=== PATIENT | male | born 1975 | race African-American/Black ===

== ENCOUNTER 2018-05-25 02:10 | Inpatient (IN) | payer BC, OTHER ==
--- NOTE | 2018-05-25 02:11 | PDOC ---
History of Present Illness - General Chief Complaint: Lethargy Stated Complaint: DEHYDRATION Time Seen by Provider: 05/25/18 02:11 History Source: Patient Exam Limitations: No Limitations - History of Present Illness Initial Comments: 05/25/18 03:44 Pt presents to the ED complaining of three days of severe fatigue, decreased appetite and dehydration. He has been drinking large amounts of fluid, but has not been eating. Complains of mild sore throat, but denies fever, body aches, cough, or other symptoms. No nausea or vomiting. No prior history of diabetes. Past History - Past Medical History Allergies/Adverse Reactions: Allergies Allergy/AdvReac Type Severity Reaction Status Date / Time No Known Allergies Allergy Verified 10/13/12 11:25 Home Medications: Ambulatory Orders Zantac PRN 10/13/12 - Suicide/Smoking/Psychosocial Hx Smoking Status: No Smoking History: Unknown if ever smoked Number of Cigarettes Smoked Daily: 0 Drug/Substance Use Hx: No Substance Use Type: None Review of Systems - Review of Systems Able to Perform ROS?: Yes Is the patient limited Croatian proficient: No Constitutional: No: Chills, Diaphoresis, Fever, Loss of Appetite, Malaise, Night Sweats, Weakness, Weight Stable, Unintentional Wgt. Loss, Unexplained wgt Loss, Other HEENTM: No: Eye Pain, Blurred Vision, Tearing, Recent change in vision, Double Vision, Cataracts, Ear Pain, Ocular Prothesis, Ear Discharge, Nose Pain, Nose Congestion, Tinnitus, Nose Bleeding, Hearing Loss, Throat Pain, Throat Swelling , Mouth Pain, Dental Problems, Difficulty Swallowing, Mouth Swelling, Other Cardiac (ROS): No: Symptoms Reported, See HPI, Chest Pain, Edema, Irregular Heart Rate, Lightheadedness, Palpitations, Syncope, Chest Tightness, Other ABD/GI: Yes: Poor Appetite. No: Abdominal Distended, Abd. Pain w/ defecation, Blood Streaked Bowels, Constipated, Diarrhea, Difficulty Swallowing, Nausea, Poor Fluid Intake, Rectal Bleeding, Vomiting, Indigestion, Abdominal cramping, Tarry Stools, Other : No: Symptoms Reported, See HPI, Burning, Dysuria, Discharge, Frequency, Flank Pain, Hematuria, Incontinence, Pain, Urgency, Testicular Mass, Testicular Swelling, Lesions, Testicular Pain, Other Musculoskeletal: No: Symptoms Reported, See HPI, Back Pain, Gout, Joint Pain, Joint Swelling, Muscle Pain, Muscle Weakness, Neck Pain, Joint Stiffness, Other Integumentary: No: Symptoms Reported, See HPI, Bruising, Change in Color, Change in Hair/Nails, Dryness, Erythema, Flushing, Lesions, Lumps, Pallor, Pruritus, Rash, Sweating, Other Neurological: No: Symptoms reported, See HPI, Headache, Numbness, Paresthesia, Pre-Existing Deficit, Seizure, Tingling, Tremors, Weakness, Unsteady Gait, Ataxia, Dizziness, Other Psychiatric: Yes: Change in Appetite Endocrine: Yes: Increased Thirst, Increased Urine All Other Systems: Reviewed and Negative ED Treatment Course - LABORATORY CBC & Chemistry Diagram: 05/25/18 02:39 05/25/18 04:23 Medical Decision Making - Medical Decision Making 05/25/18 03:51 Pt presents to the ED complaining of a three day history of malaise, increased thirst and decreased appetite. Differential included new onset DM, electrolyte imbalance, less likely thyroid disorder or infection. Labs show glucose >1000. Rest of chemistry is still pending. Will treat with insulin drip if patient has DKA. Will continue agressive hydration and reassess sugar. 05/25/18 03:53 05/25/18 06:12 repeat labs after agressive hydration and insulin show that the patient remains hyperglycemic and hyperosmolar, but anion gap is now closed. Case discussed with hospitalist [employer] Tamara Velazquez, who has accepted the patient for admission but requests that the patient be transferred to [facility] for closer monitoring. Will continue IV hydration and recheck sugar. *DC/Admit/Observation/Transfer Diagnosis at time of Disposition: Hyperosmolarity due to type 1 diabetes mellitus - Discharge Dispostion Condition at time of disposition: Good Decision to Admit order: Yes - Referrals - Patient Instructions - Post Discharge Activity
[2018-05-25] MEDS ORDERED: SODIUM CHLORIDE 0.9% 500 ML INFUS.BAG IV ONE ×2 (02:30→06:20)
[2018-05-25 03:13] LABS: BASO % 0.1 % (0-2.0); HEMATOCRIT 48.9 % (35.4-49); HEMOGLOBIN 16.2 GM/dL (11.7-16.9); LYMPH % 11.6 % (8-40); MCHC 33.1 g/dl (32.0-35.9); MEAN CELL VOLUME 84.6 fl (80-96); MEAN PLT VOLUME 11.1 fl (7.5-11.1); MONO % 7.9 % (3.8-10.2); NEUT % 80.4 % (42.8-82.8); PLATELET COUNT 192 K/MM3 (134-434); RBC 5.78 M/mm3 (4.00-5.60); RDW 14.2 % (11.9-15.9); WHITE BLOOD COUNT 11.7 K/mm3 (4.0-10.0)
[2018-05-25 03:18] LABS: URINE APPEARANCE CLEAR; URINE BILIRUBIN NEGATIVE (<2.0 mg/dL); URINE COLOR COLORLESS; URINE GLUCOSE (UA) 3+ (NEGATIVE); URINE KETONE 1+ (NEGATIVE); URINE LEUK ESTERASE NEGATIVE (NEGATIVE); URINE NITRITE NEGATIVE (NEGATIVE); URINE PROTEIN NEGATIVE (NEGATIVE); URINE UROBILINOGEN NEGATIVE mg/dL (0.2-1.0)
[2018-05-25 03:30] LABS: EPI CELLS RARE /HPF (FEW)
[2018-05-25] MEDS ORDERED: HEMOQUE TEST 1 EACH EACH ONE ×3 (03:44→08:06)
[2018-05-25 03:55] LABS: ALBUMIN 4.4 g/dl (3.4-5.0); ALK PHOS 99 U/L (45-117); ANION GAP 17 MMOL/L (8-16); BILIRUBIN,TOTAL 2.8 mg/dL (0.2-1); BLOOD UREA NITROGEN 35 mg/dL (7-18); CALCIUM 10.3 mg/dL (8.5-10.1); CHLORIDE 94 mmol/L (98-107); CO2 25 mmol/L (21-32); CREATININE 2.2 mg/dL (0.55-1.3); GLUCOSE,RANDOM 1081 mg/dL (74-106); POTASSIUM 5.4 mmol/L (3.5-5.1); SGOT/AST 27 U/L (15-37); SGPT/ALT 28 U/L (13-61); SODIUM 136 mmol/L (136-145); TOT PROT 9.1 g/dl (6.4-8.2)
[2018-05-25] MEDS ORDERED: INSULIN REGULAR HUMAN 100 UNITS/ML *VIAL IVPUSH ONE ×2 (03:56→05:39)
[2018-05-25] MEDS ORDERED: INSULIN REGULAR 100 UNITS in SODIUM CHLORIDE 99 ML IVPB SCH (04:00)
[2018-05-25] MEDS ORDERED: INSULIN REGULAR HUMAN 100 UNITS/ML *VIAL ONE ×3 (04:02→07:01)
[2018-05-25 05:09] LABS: VENOUS PC02 50.3 mmHg (38-52); VENOUS PH 7.3 (7.32-7.42); VENOUS PO2 34.2 mmHg (28-48)
[2018-05-25 05:35] LABS: ALBUMIN 3.7 g/dl (3.4-5.0); ALK PHOS 81 U/L (45-117); ANION GAP 13 MMOL/L (8-16); BILIRUBIN,TOTAL 2.1 mg/dL (0.2-1); BLOOD UREA NITROGEN 35 mg/dL (7-18); CALCIUM 9.3 mg/dL (8.5-10.1); CHLORIDE 109 mmol/L (98-107); CO2 25 mmol/L (21-32); CREATININE 1.9 mg/dL (0.55-1.3); POTASSIUM 5.5 mmol/L (3.5-5.1); SGOT/AST 25 U/L (15-37); SGPT/ALT 26 U/L (13-61); SODIUM 147 mmol/L (136-145); TOT PROT 7.5 g/dl (6.4-8.2)
[2018-05-25 05:36] LABS: GLUCOSE,RANDOM 753 mg/dL (74-106)
[2018-05-25 05:43] LABS: ACETONE SERUM POSITIVE SMALL 1+ (NEGATIVE)
[2018-05-25] MEDS ORDERED: SODIUM CHLORIDE 0.45% 1,000 ML IV SCH ×3 (06:30→14:00)
[2018-05-25] MEDS: INSULIN REGULAR 100 UNITS in SODIUM CHLORIDE 99 ML IVPB SCH (07:08)
--- NOTE | 2018-05-25 07:52 | HP ---
Admitting History and Physical - Admission Chief Complaint: Feeling weak with nausea and vomiting with excessive thirst History of Present Illness: healthy man no significant PMH last Psysical was 1 yr ago, admitted at [facility] ED with c/o feeling weak with tiredness, excessive thirst and urination since last Saturday after he florentin from [place], no c/o fever, abd pain nausea, vomiting or diarrhea, in the ED Marked hyperglycemia calculated Osmolality 345 with ALLEN and Hyperklaemia, received IV Hydration and transferred to [facility] ICU for insulin drip, denies any fever, chills, , chest pain, SOB or neurological complaints at the time of examination RPG 327 DC Insulin drip received Levimir 7 units. History Source: Patient - Smoking History Smoking history: Unknown if ever smoked Aproximately how many cigarettes per day: 0 - Alcohol/Substance Use Hx Alcohol Use: No History of Substance Use: reports: None Home Medications - Allergies Allergies/Adverse Reactions: Allergies Allergy/AdvReac Type Severity Reaction Status Date / Time No Known Allergies Allergy Verified 10/13/12 11:25 - Home Medications Home Medications: Ambulatory Orders Zantac PRN 10/13/12 Family Disease History - Family Disease History Family History: Unremarkable Family Disease History: Diabetes: Father Review of Systems - Review of Systems Constitutional: reports: Lethargy, Loss of Appetite, Malaise, Unintentional Wgt. Loss. denies: Diaphoresis, Fever Eyes: denies: Blind Spots, Blurred Vision, Double Vision HENT: denies: Difficult Swallowing, Ear Discharge Neck: denies: Decreased ROM, Lumps, Pain on Movement Cardiovascular: denies: Chest Pain, Edema, Palpitations, Shortness of Breath Respiratory: denies: Cough, Exercise Intolerance, Hemoptysis, Orthopnea Gastrointestinal: denies: Abdominal Pain, Bloating, Constipation, Diarrhea Genitourinary: denies: Burning, Discharge, Dysuria, Flank Pain, Frequency Musculoskeletal: denies: Back Pain, Crepitus Integumentary: denies: Blister, Bruising Endocrine: reports: Increased Hunger, Increased Thirst, Unexplained Weight Loss. denies: Excessive Sweating, Flushing Pain Intensity: 0 Physical Examination Vital Signs: Vital Signs Temperature 98.3 F 05/25/18 06:23 Pulse Rate 99 H 05/25/18 06:23 Respiratory Rate 18 05/25/18 06:23 Blood Pressure 142/88 05/25/18 06:23 O2 Sat by Pulse Oximetry (%) 97 05/25/18 06:23 Young man not in distress HEENT: Mm moist, no anemia, no JVD No Bruit CHEST: CTA B/L CVS: S1S2 R ABD: No distention, non tender Bs + EXT: No edema feet, Pulses + FIB[employer]ASS [employer] REPAIRER: AOX3 non focal Labs: CBC, BMP 05/25/18 02:39 05/25/18 04:23 CBC,CMP WBC 11.7 K/mm3 (4.0-10.0) H 05/25/18 02:39 RBC 5.78 M/mm3 (4.00-5.60) H 05/25/18 02:39 Hgb 16.2 GM/dL (11.7-16.9) 05/25/18 02:39 Hct 48.9 % (35.4-49) 05/25/18 02:39 MCV 84.6 fl (80-96) 05/25/18 02:39 MCH 28.0 pg (25.7-33.7) 05/25/18 02:39 MCHC 33.1 g/dl (32.0-35.9) 05/25/18 02:39 RDW 14.2 % (11.9-15.9) 05/25/18 02:39 Plt Count 192 K/MM3 (134-434) 05/25/18 02:39 MPV 11.1 fl (7.5-11.1) 05/25/18 02:39 Absolute Neuts (auto) 9.4 K/mm3 (1.5-8.0) H 05/25/18 02:39 Neutrophils % 80.4 % (42.8-82.8) 05/25/18 02:39 Lymphocytes % 11.6 % (8-40) 05/25/18 02:39 Monocytes % 7.9 % (3.8-10.2) 05/25/18 02:39 Eosinophils % 0.0 % (0-4.5) 05/25/18 02:39 Basophils % 0.1 % (0-2.0) 05/25/18 02:39 Nucleated RBC % 0 % (0-0) 05/25/18 02:39 Sodium 147 mmol/L (136-145) H 05/25/18 04:23 Potassium 5.5 mmol/L (3.5-5.1) H 05/25/18 04:23 Chloride 109 mmol/L (98-107) H 05/25/18 04:23 Carbon Dioxide 25 mmol/L (21-32) 05/25/18 04:23 Anion Gap 13 MMOL/L (8-16) 05/25/18 04:23 BUN 35 mg/dL (7-18) H 05/25/18 04:23 Creatinine 1.9 mg/dL (0.55-1.3) H 05/25/18 04:23 Creat Clearance w eGFR 38.70 (>60) 05/25/18 04:23 Random Glucose 753 mg/dL (74-106) H* 05/25/18 04:23 Calcium 9.3 mg/dL (8.5-10.1) 05/25/18 04:23 Total Bilirubin 2.1 mg/dL (0.2-1) H 05/25/18 04:23 AST 25 U/L (15-37) 05/25/18 04:23 ALT 26 U/L (13-61) 05/25/18 04:23 Alkaline Phosphatase 81 U/L (45-117) 05/25/18 04:23 Total Protein 7.5 g/dl (6.4-8.2) 05/25/18 04:23 Albumin 3.7 g/dl (3.4-5.0) 05/25/18 04:23 TSH 0.56 uIU/ml (0.358-3.74) 05/25/18 02:39 Imaging - Results X-ray: Report Reviewed (No acute infiltrates) EKG: Report Reviewed ([address] changes) Problem List - Problems (1) Hyperosmolarity due to type 1 diabetes mellitus Assessment/Plan: Hyperosmolar , Hyperglycemia AG 17 , Ketone +, primarily state of insulin Toxicity, Cont Levimir with correction dose insulin IV Hydration total 4-5 Ltr volume HBA!C add Metformin once Renal functions improves consider ELANA antibody. repletion Code(s): E10.69 - TYPE 1 DIABETES MELLITUS WITH OTHER SPECIFIED COMPLICATION; E10.65 - TYPE 1 DIABETES MELLITUS WITH HYPERGLYCEMIA (2) Diabetes mellitus, new onset Assessment/Plan: Cont nsulin drip HBA!C, ELANA ab, Endocrine consult, Diabetic educaton DC plna as per response Code(s): E11.9 - TYPE 2 DIABETES MELLITUS WITHOUT COMPLICATIONS (3) ALLEN (acute kidney injury) Assessment/Plan: due to dehydration improving on IV Hydration and insulin therapy Code(s): N17.9 - ACUTE KIDNEY FAILURE, UNSPECIFIED (4) Dehydration Assessment/Plan: IV Hydration F/U BMP Code(s): E86.0 - DEHYDRATION (5) Hyperkalemia Assessment/Plan: Improved with Hydration F/U BMP. Code(s): E87.5 - HYPERKALEMIA
[2018-05-25 08:35] LABS: ANION GAP 11 MMOL/L (8-16); BLOOD UREA NITROGEN 28 mg/dl (7-18); CALCIUM 9.5 mg/dl (8.5-10); CHLORIDE 117 mmol/L (98-107); CO2 26 mmol/L (21-32); CREATININE 1.5 mg/dl (0.55-1.3); MAGNESIUM 2.8 mg/dL (1.8-2.4); PHOSPHOROUS 3.1 mg/dl (2.5-4.9); POTASSIUM 4.1 mmol/L (3.5-5.1); SODIUM 154 mmol/L (136-145)
[2018-05-25 08:37] LABS: GLUCOSE,RANDOM 451 mg/dl (74-106)
[2018-05-25] MEDS ORDERED: INSULIN (LEVEMIR) 100 UNITS/ML UNITS SQ ONE (10:00)
[2018-05-25] MEDS ORDERED: SODIUM CHLORIDE 1,000 ML IV SCH (10:00)
--- NOTE | 2018-05-25 10:05 | PN ---
Teaching Attending Note Name of Resident: Dc Britt ATTENDING PHYSICIAN STATEMENT I saw and evaluated the patient. I reviewed the resident's note and discussed the case with the resident. I agree with the resident's findings and plan as documented. SUBJECTIVE: Patent seen and examined in the ICU. Admitted via the ER due to three days of severe fatigue and polyuria. Recent travel to [place]. Reports mild sore throat for 1 day duration. No prior medical illnesses or admissions. Started on an Insulin drip @ 3 units per hour. Intake & Output 05/22/18 05/23/18 05/24/18 05/25/18 23:59 23:59 23:59 23:59 Intake Total 3500 Balance 3500 Weight 160 lb 4.8 oz Last Vital Signs Temp Pulse Resp BP Pulse Ox 98.3 F 92 H 18 145/77 96 05/25/18 08:45 05/25/18 08:45 05/25/18 08:45 05/25/18 08:45 05/25/18 08:45 Active Medications Chlorhexidine Gluconate (Hibiclens For Decolonization -) 1 applic TP HS [facility] Heparin Sodium (Porcine) (Heparin -) 5,000 unit SQ BID [facility] Insulin Human Regular 100 (units/ Sodium Chloride) 100 mls @ 7.48 mls/hr IVPB TITR WILLIAM; Protocol Last Titration: 05/25/18 08:11 Dose: 0.04 units/kg/hr, 3 mls/hr Sodium Chloride (Normal Saline -) 1,000 mls @ 250 mls/hr IV ASDIR WILLIAM Insulin Aspart (Novolog Vial Sliding Scale -) 1 vial SQ ACHS [facility]; Protocol Mupirocin (Bactroban Ointment (For Decolonization) -) 1 applic NS BID [facility] Stop: 05/30/18 09:59 Ranitidine HCl (Zantac -) 150 mg PO DAILY [facility] GENERAL: Awake and alert HEAD: Normal with no signs of trauma. EYES: Pupils equal, round and reactive ENT dry mucous membranes. NECK:supple LUNGS: Clear HEART: Regular rate and rhythm, normal S1 and S2 ABDOMEN: Soft, (+) BS, NT MUSCULOSKELETAL: Normal range of motion at all joints. No bony deformities UPPER EXTREMITIES: 2+ pulses, warm, well-perfused. No cyanosis. No clubbing. Cap refill <2 seconds. No peripheral edema. LOWER EXTREMITIES: 2+ pulses, warm, well-perfused. No peripheral edema. NEUROLOGICAL: non-focal SKIN: Warm, dry, normal turgor Laboratory Results - last 24 hr 05/25/18 05/25/18 05/25/18 02:39 02:39 02:39 WBC 11.7 H RBC 5.78 H Hgb 16.2 Hct 48.9 MCV 84.6 MCH 28.0 MCHC 33.1 RDW 14.2 Plt Count 192 MPV 11.1 Absolute Neuts (auto) 9.4 H Neutrophils % 80.4 Lymphocytes % 11.6 Monocytes % 7.9 Eosinophils % 0.0 Basophils % 0.1 Nucleated RBC % 0 VBG pH POC VBG pCO2 POC VBG pO2 Mixed VBG HCO3 Sodium 136 Potassium 5.4 H Chloride 94 L Carbon Dioxide 25 Anion Gap 17 H BUN 35 H Creatinine 2.2 H Creat Clearance w eGFR 32.68 POC Glucometer Random Glucose 1081 H* Hemoglobin A1c % Lactic Acid Calcium 10.3 H Phosphorus Magnesium Total Bilirubin 2.8 H AST 27 ALT 28 Alkaline Phosphatase 99 Total Protein 9.1 H Albumin 4.4 TSH 0.56 Urine Color Colorless Urine Appearance Clear Urine pH 5.0 Ur Specific Bonita 1.025 Urine Protein Negative Urine Glucose (UA) 3+ H Urine Ketones 1+ H Urine Blood 1+ H Urine Nitrite Negative Urine Bilirubin Negative Urine Urobilinogen Negative Ur Leukocyte Esterase Negative Urine WBC (Auto) <1 Urine RBC (Auto) <1 Ur Epithelial Cells Rare Acetone, Qual 05/25/18 05/25/18 05/25/18 04:20 04:23 07:30 WBC RBC Hgb Hct MCV MCH MCHC RDW Plt Count MPV Absolute Neuts (auto) Neutrophils % Lymphocytes % Monocytes % Eosinophils % Basophils % Nucleated RBC % VBG pH 7.30 L POC VBG pCO2 50.3 POC VBG pO2 34.2 Mixed VBG HCO3 24.1 Sodium 147 H 154 H Potassium 5.5 H 4.1 Chloride 109 H 117 H Carbon Dioxide 25 26 Anion Gap 13 11 BUN 35 H 28 H Creatinine 1.9 H 1.5 H Creat Clearance w eGFR 38.70 50.84 POC Glucometer Random Glucose 753 H* 451 H* Hemoglobin A1c % Lactic Acid Calcium 9.3 9.5 Phosphorus 3.1 Magnesium 2.8 H Total Bilirubin 2.1 H AST 25 ALT 26 Alkaline Phosphatase 81 Total Protein 7.5 Albumin 3.7 TSH Urine Color Urine Appearance Urine pH Ur Specific Bonita Urine Protein Urine Glucose (UA) Urine Ketones Urine Blood Urine Nitrite Urine Bilirubin Urine Urobilinogen Ur Leukocyte Esterase Urine WBC (Auto) Urine RBC (Auto) Ur Epithelial Cells Acetone, Qual Positive small 1+ 05/25/18 05/25/18 05/25/18 07:30 07:30 07:30 WBC RBC Hgb Hct MCV MCH MCHC RDW Plt Count MPV Absolute Neuts (auto) Neutrophils % Lymphocytes % Monocytes % Eosinophils % Basophils % Nucleated RBC % VBG pH POC VBG pCO2 POC VBG pO2 Mixed VBG HCO3 Sodium Potassium Chloride Carbon Dioxide Anion Gap BUN Creatinine Creat Clearance w eGFR POC Glucometer Random Glucose Hemoglobin A1c % 10.4 H Lactic Acid 1.4 Calcium Phosphorus Magnesium 2.7 H Total Bilirubin AST ALT Alkaline Phosphatase Total Protein Albumin TSH Urine Color Urine Appearance Urine pH Ur Specific Bonita Urine Protein Urine Glucose (UA) Urine Ketones Urine Blood Urine Nitrite Urine Bilirubin Urine Urobilinogen Ur Leukocyte Esterase Urine WBC (Auto) Urine RBC (Auto) Ur Epithelial Cells Acetone, Qual 05/25/18 08:09 WBC RBC Hgb Hct MCV MCH MCHC RDW Plt Count MPV Absolute Neuts (auto) Neutrophils % Lymphocytes % Monocytes % Eosinophils % Basophils % Nucleated RBC % VBG pH POC VBG pCO2 POC VBG pO2 Mixed VBG HCO3 Sodium Potassium Chloride Carbon Dioxide Anion Gap BUN Creatinine Creat Clearance w eGFR POC Glucometer [phone] Random Glucose Hemoglobin A1c % Lactic Acid Calcium Phosphorus Magnesium Total Bilirubin AST ALT Alkaline Phosphatase Total Protein Albumin TSH Urine Color Urine Appearance Urine pH Ur Specific Bonita Urine Protein Urine Glucose (UA) Urine Ketones Urine Blood Urine Nitrite Urine Bilirubin Urine Urobilinogen Ur Leukocyte Esterase Urine WBC (Auto) Urine RBC (Auto) Ur Epithelial Cells Acetone, Qual IMP: Hyperosmolar Hyperglycemic Nonketotic Syndrome ARF New Onset DM Dehydration PLAN: Aggressive IVF resuscitation Wean Insulin and transition to SQ (can either due short acting coverage or basal insulin) PO as tolerated Strict I & O Follow AG Follow chemistry VTE prophylaxis Check lipids ICU Monitoring while on IV Insulin Dr Cotter Critical care time spent in reviewing chart, evaluating patient and formulating plan - 36 minutes.
--- NOTE | 2018-05-25 10:36 | CONSULT ---
Consult Consult Specialty:: Pulm/CCM Referred by:: ED Reason for Consultation:: [facility] - History of Present Illness Chief Complaint: not feeling well History of Present Illness: 42M no PMH presents to the ER with a chief complaint of polydipsia, polyuria, and general malaise. He states he had a sore throat a couple of days ago. He was found to have a glucose >1000. He was started on an insulin gtt at [place] an transferred to ICU. He denies vomiting fever chills chest pain or SOB. Denies urinary or GI symptoms. Denies any PMH or being on medications at home. Family history of borderline DM in his father. - History Source History Provided By: Patient Limitations to Obtaining History: Clinical Condition - Alcohol/Substance Use Hx Alcohol Use: No - Smoking History Smoking history: Never smoked Have you smoked in the past 12 months: No Aproximately how many cigarettes per day: 0 Home Medications - Allergies Allergies/Adverse Reactions: Allergies Allergy/AdvReac Type Severity Reaction Status Date / Time No Known Allergies Allergy Verified 10/13/12 11:25 - Home Medications Home Medications: Ambulatory Orders Zantac PRN 10/13/12 Family Disease History - Family Disease History Family Disease History: Diabetes: Father (borderline ) Review of Systems - Review of Systems Constitutional: reports: Loss of Appetite, Weakness Eyes: reports: No Symptoms HENT: reports: No Symptoms Neck: reports: No Symptoms Cardiovascular: reports: No Symptoms Respiratory: reports: No Symptoms Gastrointestinal: reports: No Symptoms Genitourinary: reports: Other (polyuria polydipsia) Breasts: reports: No Symptoms Reported Musculoskeletal: reports: No Symptoms Integumentary: reports: No Symptoms Neurological: reports: No Symptoms Endocrine: reports: Increased Thirst Physical Exam Vital Signs: Vital Signs Temperature 98.3 F 05/25/18 08:45 Pulse Rate 92 H 05/25/18 08:45 Respiratory Rate 18 05/25/18 08:45 Blood Pressure 145/77 05/25/18 08:45 O2 Sat by Pulse Oximetry (%) 96 05/25/18 08:45 Constitutional: Yes: Well Nourished, No Distress, Calm Eyes: Yes: Conjunctiva Clear, EOM Intact HENT: Yes: Atraumatic, Normocephalic Neck: Yes: Supple Cardiovascular: Yes: Regular Rate and Rhythm Respiratory: Yes: Regular, CTA Bilaterally Gastrointestinal: Yes: Normal Bowel Sounds, Soft Edema: No Neurological: Yes: Alert, Oriented Psychiatric: Yes: Alert, Oriented Labs: CBC, BMP 05/25/18 02:39 05/25/18 07:30 Imaging - Results Chest X-ray: Report Reviewed, Image Reviewed Assessment/Plan 42M with no PMH presents to the hospital with nausea polydipsia polyuria weakness and poor appetite found to have new onset diabetes and Hyperosmolar Hyperglycemic Nonketotic Syndrome and acute kidney injury. Problem List: Hyperosmolar Hyperglycemic Nonketotic Syndrome possible URI/Viral syndrome Acute kidney injury new onset diabetes mellitus volume depletion/dehydration Plan: Transferred to ICU on insulin gtt @ 3 units/hr will start levemir 7 units and take off insulin gtt ISS diabetic diet continue aggressive IVF NS @ 250ml/hr repeat BMP in afternoon @ 2pm DVT PPx GI PPx HbA1C 10.4% Lipid profile Will get dietary consult for DM education will get endocrinology consult CCTime [address] Cotter
[2018-05-25] MEDS: RANITIDINE HCL 150 MG TABLET (FP) PO SCH (10:51)
[2018-05-25] MEDS: HEPARIN NA (PORCINE) 5,000 UNITS/ML 1ML VIAL SQ SCH ×2 (10:51→21:35)
[2018-05-25] MEDS: INSULIN SLIDING SCALE (NOVOLOG) 1 VIAL SQ SCH ×3 (10:58→21:35)
[2018-05-25 13:12] LABS: ANION GAP 3 MMOL/L (8-16); BLOOD UREA NITROGEN 24 mg/dL (7-18); CALCIUM 8.6 mg/dL (8.5-10.1); CHLORIDE 121 mmol/L (98-107); CO2 31 mmol/L (21-32); CREATININE 1.5 mg/dL (0.55-1.3); POTASSIUM 4.4 mmol/L (3.5-5.1); SODIUM 154 mmol/L (136-145)
[2018-05-25 13:20] LABS: GLUCOSE,RANDOM 350 mg/dL (74-106)
[2018-05-25] MEDS: MUPIROCIN 2% TOPICAL OINTMENT FOR DECOLONIZATION NS SCH ×2 (14:47→22:00)
--- NOTE | 2018-05-25 15:42 | EKG ---
Test Reason : Blood Pressure : / mmHG Vent. Rate : 101 BPM Atrial Rate : 101 BPM P-R Int : 156 ms QRS Dur : 084 ms QT Int : 348 ms P-R-T Axes : 051 010 -17 degrees QTc Int : 451 ms SINUS TACHYCARDIA T WAVE ABNORMALITY, CONSIDER ANTEROLATERAL ISCHEMIA ABNORMAL ECG NO PREVIOUS ECGS AVAILABLE Confirmed by ELOINA COPELAND MD ([id number]) on 05/25/2018 3:42:24 PM Referred By: KULDEEP Confirmed By:ELOINA COPELAND MD
[2018-05-25 17:21] LABS: ANION GAP 9 MMOL/L (8-16); BLOOD UREA NITROGEN 22 mg/dL (7-18); CHLORIDE 118 mmol/L (98-107); CO2 27 mmol/L (21-32); CREATININE 1.5 mg/dL (0.55-1.3); GLUCOSE,RANDOM 295 mg/dL (74-106); POTASSIUM 4.2 mmol/L (3.5-5.1); SODIUM 154 mmol/L (136-145)
[2018-05-25] MEDS: SODIUM CHLORIDE 0.45% 1,000 ML IV SCH (17:36)
[2018-05-25 18:03] LABS: CHOLESTEROL 246 mg/dL (50-200); HDL CHOLESTEROL 48 mg/dL (40-60); TRIGLYCERIDES 373 mg/dL (0-150)
[2018-05-25] MEDS ORDERED: CHLORHEXIDINE GLUCONATE 4% CLEANSER FOR DECOLONIZATION TP SCH (22:00)
[2018-05-25 22:02] LABS: ANION GAP 6 MMOL/L (8-16); BLOOD UREA NITROGEN 21 mg/dL (7-18); CALCIUM 8.8 mg/dL (8.5-10.1); CHLORIDE 120 mmol/L (98-107); CO2 30 mmol/L (21-32); CREATININE 1.4 mg/dL (0.55-1.3); GLUCOSE,RANDOM 267 mg/dL (74-106); POTASSIUM 4.2 mmol/L (3.5-5.1); SODIUM 156 mmol/L (136-145)
[2018-05-26 06:06] LABS: HEMATOCRIT 37.9 % (35.4-49); HEMOGLOBIN 12.8 GM/dL (11.7-16.9); MCH 27.8 pg (25.7-33.7); MCHC 33.8 g/dl (32.0-35.9); MEAN CELL VOLUME 82.4 fl (80-96); MEAN PLT VOLUME 9.3 fl (7.5-11.1); PLATELET COUNT 127 K/MM3 (134-434); RDW 13.8 % (11.9-15.9); WHITE BLOOD COUNT 7.1 K/mm3 (4.0-10.0)
[2018-05-26 06:28] LABS: ALBUMIN 3.1 g/dl (3.4-5.0); ALK PHOS 66 U/L (45-117); ANION GAP 4 MMOL/L (8-16); BILIRUBIN,TOTAL 1.3 mg/dL (0.2-1); BLOOD UREA NITROGEN 18 mg/dL (7-18); CALCIUM 7.9 mg/dL (8.5-10.1); CHLORIDE 118 mmol/L (98-107); CHOLESTEROL 219 mg/dL (50-200); CO2 30 mmol/L (21-32); CREATININE 1.3 mg/dL (0.55-1.3); GLUCOSE,RANDOM 254 mg/dL (74-106); HDL CHOLESTEROL 39 mg/dL (40-60); MAGNESIUM 2.1 mg/dL (1.8-2.4); POTASSIUM 3.8 mmol/L (3.5-5.1); SGOT/AST 40 U/L (15-37); SGPT/ALT 25 U/L (13-61); SODIUM 152 mmol/L (136-145); TOT PROT 6.4 g/dl (6.4-8.2); TRIGLYCERIDES 376 mg/dL (0-150)
[2018-05-26] MEDS: INSULIN SLIDING SCALE (NOVOLOG) 1 VIAL SQ SCH ×3 (06:32→17:27)
[2018-05-26] MEDS: INSULIN REGULAR 100 UNITS in SODIUM CHLORIDE 99 ML IVPB SCH (06:58)
[2018-05-26] MEDS ORDERED: INSULIN (LEVEMIR) 100 UNITS/ML UNITS SQ ONE ×2 (08:18→08:22)
[2018-05-26] MEDS: HEPARIN NA (PORCINE) 5,000 UNITS/ML 1ML VIAL SQ SCH ×2 (09:20→21:33)
[2018-05-26] MEDS: RANITIDINE HCL 150 MG TABLET (FP) PO SCH (09:20)
[2018-05-26] MEDS: SODIUM CHLORIDE 0.45% 1,000 ML IV SCH ×3 (10:30→21:30)
[2018-05-26] MEDS: MUPIROCIN 2% TOPICAL OINTMENT FOR DECOLONIZATION NS SCH (10:36)
--- NOTE | 2018-05-26 10:50 | CONSULT ---
Consult Consult Specialty:: Endocrinology Referred by:: Tamara Clark Reason for Consultation:: Hyperglycemia, New Onset DM - History of Present Illness Chief Complaint: Fatigue History of Present Illness: This is a 42 y/o man with no significant PMH last Psysical was 1 yr ago, admitted at [facility] ED with c/o feeling weak with tiredness, excessive thirst and urination since last Saturday after he florentin from [place]. Weight loss around 5 lbs in the last few weks. No visual symptoms. No paresthesia of feet. Denies any fever, abd pain nausea, vomiting or diarrhea. In the ED pt was found to be markedly hyperglycemia with calcualted calculated Osmolality 345 with ALLEN and Hyperklaemia. Pt received IV Hydration and transferred to [facility] ICU for management with IV insulin. Pt improved clinically and chemically with resolution of hyperosmolality and improvment in hyperglycemia and was switched to SQ basal bolus regimen. Pt got levemir 10 today morining. Father has borderline diabetes. - History Source History Provided By: Patient, Medical Record - Alcohol/Substance Use Hx Alcohol Use: No History of Substance Use: reports: None - Smoking History Smoking history: Unknown if ever smoked Have you smoked in the past 12 months: No Aproximately how many cigarettes per day: 0 Home Medications - Allergies Allergies/Adverse Reactions: Allergies Allergy/AdvReac Type Severity Reaction Status Date / Time No Known Allergies Allergy Verified 10/13/12 11:25 - Home Medications Home Medications: Ambulatory Orders Zantac 150 mg PO PRN PRN 10/13/12 Family Disease History - Family Disease History Family Disease History: Diabetes: Father Review of Systems - Review of Systems Constitutional: reports: Weakness Eyes: reports: No Symptoms HENT: reports: No Symptoms Neck: reports: No Symptoms Cardiovascular: reports: No Symptoms Respiratory: reports: No Symptoms Gastrointestinal: reports: No Symptoms Genitourinary: reports: No Symptoms Breasts: reports: No Symptoms Reported Musculoskeletal: reports: No Symptoms Integumentary: reports: No Symptoms Neurological: reports: No Symptoms Endocrine: reports: Increased Thirst Hematology/Lymphatic: reports: No Symptoms Psychiatric: reports: No Symptoms Physical Exam Vital Signs: Vital Signs Temperature 98.6 F 05/26/18 09:09 Pulse Rate 68 05/26/18 09:09 Respiratory Rate 16 05/26/18 09:09 Blood Pressure 125/70 05/26/18 09:09 O2 Sat by Pulse Oximetry (%) 100 05/26/18 09:00 Constitutional: Yes: No Distress, Calm Eyes: Yes: Conjunctiva Clear, EOM Intact HENT: Yes: Atraumatic, Normocephalic Neck: Yes: Supple, Trachea Midline Cardiovascular: Yes: Regular Rate and Rhythm Respiratory: Yes: Regular, CTA Bilaterally Gastrointestinal: Yes: Normal Bowel Sounds, Soft Renal/: Yes: WNL Breast(s): Yes: WNL Musculoskeletal: Yes: WNL Extremities: Yes: WNL Edema: No Neurological: Yes: Alert, Oriented Labs: CBC, BMP 05/26/18 05:15 05/26/18 05:15 Assessment/Plan A/P Hyperosmolar Hyperglycemic Nonketotic State New onset diabetes mellitus, Type 2 : A1c 10.4 Acute kidney injury Dehydration IV hydration Electrolyte replacement as necessary BGM QACHS Novolog coverage Dietary consult Teach pt to seft monitor and self Inject Insulin Will need to get C peptide and ELANA Ab as outpt. Will f/u
[2018-05-26 12:00] VITALS: BMI 25.0
[2018-05-26] MEDS ORDERED: NYSTATIN 500,000 UNITS/5 ML SUSPENSION PO SCH (12:00)
--- NOTE | 2018-05-26 12:38 | PN ---
Teaching Attending Note Name of Resident: Izabella Ziegler ATTENDING PHYSICIAN STATEMENT I saw and evaluated the patient. I reviewed the resident's note and discussed the case with the resident. I agree with the resident's findings and plan as documented. SUBJECTIVE: Pt seen and examined in the ICU. Feels better today. Off insulin gtt. Tolerating PO. OBJECTIVE: Vital Signs Period Temp Pulse Resp BP Sys/Roy Pulse Ox Last 24 Hr 98 F-98.7 F 54-85 14-18 118-148/57-86 96-100 Intake & Output 05/23/18 05/24/18 05/25/18 05/26/18 23:59 23:59 23:59 23:59 Intake Total 6649 1980 Output Total 1200 Balance 5449 1979 Weight 72.711 kg 72.575 kg Gen: NAD at rest Heart: RRR Lung: decreased breath sounds at the bases Abd: soft, nontender Ext: no edema CBC, BMP 05/26/18 05:15 05/26/18 05:15 Active Medications Chlorhexidine Gluconate (Hibiclens For Decolonization -) 1 applic TP HS [facility] Last Admin: 05/25/18 21:36 Dose: 1 applic Heparin Sodium (Porcine) (Heparin -) 5,000 unit SQ BID [facility] Last Admin: 05/26/18 09:20 Dose: 5,000 unit Insulin Human Regular 100 (units/ Sodium Chloride) 100 mls @ 7.48 mls/hr IVPB TITR [facility]; Protocol Last Admin: 05/26/18 06:58 Dose: Not Given Sodium Chloride (1/2 Normal Saline) 1,000 mls @ 150 mls/hr IV ASDIR [facility] Last Admin: 05/26/18 10:30 Dose: 150 mls/hr Insulin Aspart (Novolog Vial Sliding Scale -) 1 vial SQ HS [facility]; Protocol Insulin Aspart (Novolog Vial Sliding Scale -) 1 vial SQ TIDAC [facility]; Protocol Insulin Detemir (Levemir Vial) 10 units SQ DAILY@0700 [facility] Mupirocin (Bactroban Ointment (For Decolonization) -) 1 applic NS BID [facility] Stop: 05/30/18 09:59 Last Admin: 05/26/18 10:36 Dose: 1 applic Nystatin (Nystatin Oral Suspension -) 500,000 units PO Q6HPO [facility] Ranitidine HCl (Zantac -) 150 mg PO DAILY [facility] Last Admin: 05/26/18 09:20 Dose: 150 mg ASSESSMENT AND PLAN: Hyperosmolar Hyperglycemic Nonketotic Syndrome Acute Kidney Injury New Onset DM - glucose control - continue IVF - monitor urine output, creatinine - encourage PO free water intake - diabetic teaching - start nystatin for thrush - DVT prophylaxis - can monitor on floor
--- NOTE | 2018-05-26 13:48 | PN ---
Progress Note (short form) - Note Progress Note: SUBJECTIVE Patient seen and examined at the bedside. States that he feels "2000 times better." OBJECTIVE Vital Signs Temperature 98.7 F 05/26/18 12:00 Pulse Rate 62 05/26/18 12:00 Respiratory Rate 16 05/26/18 09:09 Blood Pressure 143/76 05/26/18 12:00 O2 Sat by Pulse Oximetry (%) 100 05/26/18 09:00 General: Awake, alert, and fully oriented, in no acute distress Head: No signs of trauma Eyes: EOMI, sclera anicteric ENT: Dry mucus membranes with thrush Neck: Normal ROM, supple Lungs: Lungs clear, Normal breath sounds Cardio: Regular rhythm, S1 and S2 present Abdomen: Soft, nontender. No guarding, no rebound, no masses Extremities: Normal range of motion, Distal pulses present SKIN: Warm, Dry, normal turgor Neurologic: Cranial nerves II through XII grossly intact. Normal speech ASSESSMENT 42M with no PMH presents to the hospital with nausea polydipsia polyuria weakness and poor appetite found to have new onset diabetes and Hyperosmolar Hyperglycemic Nonketotic Syndrome and acute kidney injury. PLAN CV Hyperlipidemia -Dr. Britt had an extensive conversation with patient regarding dietary and lifestyle changes ENDOCRINE Hyperosmolar Hyperglycemic Nonketotic Syndrome -Initially on insulin drip, transitioned to levemir 10 units -Aggressive fluid hydration New onset diabetes mellitus -HbA1C 10.4% -Endocrinology following -Dietary consult for DM education -Dr. Britt had an extensive conversation with patient regarding dietary and lifestyle changes Low TSH -Free T3 and T4 ordered GI Thrush -nystatin swish and swallow ordered RENAL Acute kidney injury, resolved -Follow BMP FEN 1/2 NS @125cc/hr Follow electrolytes, replete as needed Diabetic diet PPX VTE: SCDs GI: not needed at this time #Disposition: Patient safe to transfer to the med/surg floor. #Full Code
--- NOTE | 2018-05-26 13:57 | PN ---
Physical Exam: SUBJECTIVE: Patient seen and examined. He reports that he is feeling much better. OBJECTIVE: Vital Signs Period Temp Pulse Resp BP Sys/Roy Pulse Ox Last 24 Hr 98 F-98.7 F 54-85 14-18 118-148/57-86 96-100 GENERAL: The patient is awake, alert, and fully oriented, in no acute distress. LUNGS: Breath sounds equal, clear to auscultation bilaterally, no wheezes, no crackles, no accessory muscle use. HEART: Regular rate and rhythm, S1, S2 without murmur, rub or gallop. ABDOMEN: Soft, nontender, nondistended, normoactive bowel sounds, no guarding, no rebound, no hepatosplenomegaly, no masses. EXTREMITIES: 2+ pulses, warm, well-perfused, no edema. Laboratory Results - last 24 hr 05/25/18 05/25/18 05/25/18 03:41 06:27 16:10 WBC RBC Hgb Hct MCV MCH MCHC RDW Plt Count MPV Sodium 154 H Potassium 4.2 Chloride 118 H Carbon Dioxide 27 Anion Gap 9 BUN 22 H Creatinine 1.5 H Creat Clearance w eGFR 50.84 POC Glucometer > 400 > 400 Random Glucose 295 H Calcium 9.0 Phosphorus Magnesium Total Bilirubin AST ALT Alkaline Phosphatase Total Protein Albumin Triglycerides 373 H Cholesterol 246 H Total LDL Cholesterol 106 H HDL Cholesterol 48 TSH 05/25/18 05/25/18 05/25/18 16:58 21:34 21:37 WBC RBC Hgb Hct MCV MCH MCHC RDW Plt Count MPV Sodium 156 H Potassium 4.2 Chloride 120 H Carbon Dioxide 30 Anion Gap 6 L BUN 21 H Creatinine 1.4 H Creat Clearance w eGFR 55.05 POC Glucometer [phone] Random Glucose 267 H Calcium 8.8 Phosphorus Magnesium Total Bilirubin AST ALT Alkaline Phosphatase Total Protein Albumin Triglycerides Cholesterol Total LDL Cholesterol HDL Cholesterol TSH 05/26/18 05/26/18 05/26/18 05:15 05:15 11:58 WBC 7.1 RBC 4.60 Hgb 12.8 Hct 37.9 D MCV 82.4 MCH 27.8 MCHC 33.8 RDW 13.8 Plt Count 127 L D MPV 9.3 D Sodium 152 H Potassium 3.8 Chloride 118 H Carbon Dioxide 30 Anion Gap 4 L BUN 18 Creatinine 1.3 Creat Clearance w eGFR 59.97 POC Glucometer [phone] Random Glucose 254 H Calcium 7.9 L Phosphorus 3.0 Magnesium 2.1 Total Bilirubin 1.3 H AST 40 H ALT 25 Alkaline Phosphatase 66 Total Protein 6.4 Albumin 3.1 L Triglycerides 376 H Cholesterol 219 H Total LDL Cholesterol 98 HDL Cholesterol 39 L TSH 0.34 L D Active Medications Generic Name Dose Route Start Last Admin Trade Name Freq PRN Reason Stop Dose Admin Heparin Sodium (Porcine) 5,000 unit 05/26/18 22:00 Heparin - SQ BID [facility] Insulin Human Regular 100 100 mls @ 7.48 mls/hr 05/26/18 14:00 units/ Sodium Chloride IVPB TITR [facility] Protocol 0.1 UNITS/KG/HR Sodium Chloride 1,000 mls @ 150 mls/hr 05/26/18 13:33 1/2 Normal Saline IV ASDIR [facility] Insulin Aspart 1 vial 05/26/18 22:00 Novolog Vial Sliding Scale - SQ HS [facility] Protocol Insulin Aspart 1 vial 05/26/18 16:30 Novolog Vial Sliding Scale - SQ TIDAC [facility] Protocol Insulin Detemir 10 units 05/27/18 07:00 Levemir Vial SQ DAILY@0700 [facility] Nystatin 500,000 units 05/26/18 18:00 Nystatin Oral Suspension - PO Q6HPO [facility] Ranitidine HCl 150 mg 05/27/18 10:00 Zantac - PO DAILY [facility] ASSESSMENT/PLAN: This is a 42 year old man with no significant history of presented to the ED with weakness, nausea, vomiting, and increased thirst. 1. Non-ketotic hyperosmolar hyperglycemia - Improved 2. Type 1 DM, newly diagnosed - HgbA1c 10.4 - Continue Levemir, Novolog sliding scale 3. Acute kidney injury secondary to dehydration - Improving - Continue IV fluid - Continue to monitor creatinine 4. Hypernatremia - Improving - Continue IV 1/2 NS - Continue to monitor electrolytes 5. Hyperkalemia - Improved Visit type - Emergency Visit Emergency Visit: Yes ED Registration Date: 05/25/18 Care time: The patient presented to the Emergency Department on the above date and was hospitalized for further evaluation of their emergent condition. - New Patient This patient is new to me today: Yes Date on this admission: 05/26/18 - Critical Care Critical Care patient: No - Discharge Referral Referred to [facility] Med P.C.: No
[2018-05-26] MEDS ORDERED: INSULIN REGULAR 100 UNITS in SODIUM CHLORIDE 99 ML IVPB SCH (14:00)
[2018-05-26] MEDS ORDERED: INSULIN SLIDING SCALE (NOVOLOG) 1 VIAL SQ SCH ×3 (16:30→22:00)
[2018-05-26] MEDS: NYSTATIN 500,000 UNITS/5 ML SUSPENSION PO SCH ×2 (17:27→23:35)
[2018-05-26] MEDS ORDERED: MUPIROCIN 2% TOPICAL OINTMENT FOR DECOLONIZATION NS SCH (22:00)
[2018-05-26] MEDS ORDERED: CHLORHEXIDINE GLUCONATE 4% CLEANSER FOR DECOLONIZATION TP SCH (22:00)
[2018-05-27] MEDS: SODIUM CHLORIDE 0.45% 1,000 ML IV SCH ×2 (04:20→14:48)
[2018-05-27] MEDS: NYSTATIN 500,000 UNITS/5 ML SUSPENSION PO SCH ×4 (05:44→23:30)
[2018-05-27] MEDS: INSULIN SLIDING SCALE (NOVOLOG) 1 VIAL SQ SCH ×4 (06:07→22:01)
[2018-05-27 06:50] LABS: BASO % 0.2 % (0-2.0); EOS % 1.5 % (0-4.5); HEMATOCRIT 38.4 % (35.4-49); HEMOGLOBIN 13.2 GM/dL (11.7-16.9); LYMPH % 30.1 % (8-40); MCH 28.2 pg (25.7-33.7); MCHC 34.5 g/dl (32.0-35.9); MEAN CELL VOLUME 81.7 fl (80-96); MEAN PLT VOLUME 8.6 fl (7.5-11.1); MONO % 7.6 % (3.8-10.2); NEUT % 60.6 % (42.8-82.8); PLATELET COUNT 117 K/MM3 (134-434); RBC 4.69 M/mm3 (4.00-5.60); RDW 13.3 % (11.9-15.9); WHITE BLOOD COUNT 6.4 K/mm3 (4.0-10.0)
[2018-05-27] MEDS ORDERED: INSULIN (LEVEMIR) 100 UNITS/ML UNITS SQ SCH ×2 (07:00)
[2018-05-27 07:24] LABS: ALBUMIN 3.2 g/dl (3.4-5.0); ALK PHOS 70 U/L (45-117); ANION GAP 7 MMOL/L (8-16); BILIRUBIN,TOTAL 1.3 mg/dL (0.2-1); BLOOD UREA NITROGEN 15 mg/dL (7-18); CALCIUM 7.9 mg/dL (8.5-10.1); CHLORIDE 112 mmol/L (98-107); CO2 25 mmol/L (21-32); CREATININE 1.2 mg/dL (0.55-1.3); GLUCOSE,RANDOM 237 mg/dL (74-106); MAGNESIUM 2.2 mg/dL (1.8-2.4); PHOSPHOROUS 3.1 mg/dL (2.5-4.9); POTASSIUM 3.7 mmol/L (3.5-5.1); SGOT/AST 37 U/L (15-37); SGPT/ALT 32 U/L (13-61); SODIUM 145 mmol/L (136-145); TOT PROT 6.7 g/dl (6.4-8.2)
--- NOTE | 2018-05-27 08:57 | PN ---
Progress Note (short form) - Note Progress Note: Feels better Vital Signs Period Temp Pulse Resp BP Sys/Roy Pulse Ox Last 24 Hr 97.8 F-99 F 69-80 16-20 115-141/60-86 97 PE: AOx3 Neck: Supple, No JVD HEENT: PERRL, EOMI Lungs: CTA CVS: S1 S2 Abd: Benign EXt: No edema Neuro: No focal deficit CMP Sodium 145 mmol/L (136-145) 05/27/18 05:40 Potassium 3.7 mmol/L (3.5-5.1) 05/27/18 05:40 Chloride 112 mmol/L (98-107) H 05/27/18 05:40 Carbon Dioxide 25 mmol/L (21-32) 05/27/18 05:40 Anion Gap 7 MMOL/L (8-16) L 05/27/18 05:40 BUN 15 mg/dL (7-18) 05/27/18 05:40 Creatinine 1.2 mg/dL (0.55-1.3) 05/27/18 05:40 Creat Clearance w eGFR > 60 (>60) 05/27/18 05:40 POC Glucometer 248 UNITS (80-120) 05/27/18 16:53 Random Glucose 237 mg/dL (74-106) H 05/27/18 05:40 Hemoglobin A1c % 10.4 % (4.2-6.3) H 05/25/18 07:30 Serum Osmolality 358 mosm/kg (278-305) H 05/25/18 07:30 Lactic Acid 1.4 mmol/L (0.4-2.0) 05/25/18 07:30 Calcium 7.9 mg/dL (8.5-10.1) L 05/27/18 05:40 Phosphorus 3.1 mg/dL (2.5-4.9) 05/27/18 05:40 Magnesium 2.2 mg/dL (1.8-2.4) 05/27/18 05:40 Total Bilirubin 1.3 mg/dL (0.2-1) H 05/27/18 05:40 AST 37 U/L (15-37) 05/27/18 05:40 ALT 32 U/L (13-61) 05/27/18 05:40 Alkaline Phosphatase 70 U/L (45-117) 05/27/18 05:40 Total Protein 6.7 g/dl (6.4-8.2) 05/27/18 05:40 Albumin 3.2 g/dl (3.4-5.0) L 05/27/18 05:40 Triglycerides 376 mg/dL (0-150) H 05/26/18 05:15 Cholesterol 219 mg/dL (50-200) H 05/26/18 05:15 Total LDL Cholesterol 98 mg/dL (5-100) 05/26/18 05:15 HDL Cholesterol 39 mg/dL (40-60) L 05/26/18 05:15 TSH 0.34 uIU/ml (0.358-3.74) L D 05/26/18 05:15 Free T4 0.81 ng/dl (0.76-1.16) 05/27/18 05:40 Current Medications Generic Name Dose Route Start Last Admin Trade Name Freq PRN Reason Stop Dose Admin Heparin Sodium (Porcine) 5,000 unit 05/26/18 22:00 05/27/18 11:42 Heparin - SQ 5,000 unit BID [facility] Administration Insulin Aspart 1 vial 05/27/18 16:30 Novolog Vial Sliding Scale - SQ ACHS [facility] Protocol Insulin Detemir 15 units 05/28/18 07:00 Levemir Vial SQ DAILY@0700 [facility] Nystatin 500,000 units 05/26/18 18:00 05/27/18 12:50 Nystatin Oral Suspension - PO 500,000 units Q6HPO [facility] Administration Ranitidine HCl 150 mg 05/27/18 10:00 05/27/18 11:43 Zantac - PO 150 mg DAILY [facility] Administration A/P Hyperosmolar Hyperglycemic Nonketotic State New onset diabetes mellitus, Type 2 : A1c 10.4 Acute kidney injury Dehydration IV hydration Electrolyte replacement as necessary BGM QACHS Increase Levemir to 15 units daily Novolog coverage Dietary consult Teach pt to seft monitor and self Inject Insulin Will need to get C peptide and ELANA Ab as outpt. Will f/u
--- NOTE | 2018-05-27 11:34 | PN ---
Physical Exam: SUBJECTIVE: Patient seen and examined at the bedside. feels well and willing to learn how to self inject insulin OBJECTIVE: Vital Signs Period Temp Pulse Resp BP Sys/Roy Pulse Ox Last 24 Hr 97.8 F-99 F 62-78 18-20 115-143/60-76 97 GENERAL: The patient is awake, alert, and fully oriented, in no acute distress. HEAD: Normal with no signs of trauma. EYES: PERRL, extraocular movements intact, sclera anicteric, conjunctiva clear. No ptosis. ENT: Ears normal, nares patent, oropharynx clear without exudates, moist mucous membranes. NECK: Trachea midline, full range of motion, supple. ABDOMEN: Soft, nontender, nondistended, normoactive bowel sounds, no guarding EXTREMITIES: no edema. NEUROLOGICAL: Normal speech, gait not observed. PSYCH: Normal mood, normal affect. SKIN: Warm, dry, normal turgor, no rashes or lesions noted Laboratory Results - last 24 hr 05/26/18 05/26/18 05/26/18 11:58 17:22 21:32 WBC RBC Hgb Hct MCV MCH MCHC RDW Plt Count MPV Absolute Neuts (auto) Neutrophils % Lymphocytes % Monocytes % Eosinophils % Basophils % Nucleated RBC % Sodium Potassium Chloride Carbon Dioxide Anion Gap BUN Creatinine Creat Clearance w eGFR POC Glucometer 181.11234 259 302 Random Glucose Calcium Phosphorus Magnesium Total Bilirubin AST ALT Alkaline Phosphatase Total Protein Albumin Free T4 05/27/18 05/27/18 05/27/18 05:40 05:40 05:46 WBC 6.4 RBC 4.69 Hgb 13.2 Hct 38.4 MCV 81.7 MCH 28.2 MCHC 34.5 RDW 13.3 Plt Count 117 L MPV 8.6 Absolute Neuts (auto) 3.9 Neutrophils % 60.6 D Lymphocytes % 30.1 D Monocytes % 7.6 Eosinophils % 1.5 D Basophils % 0.2 Nucleated RBC % 0 Sodium 145 Potassium 3.7 Chloride 112 H Carbon Dioxide 25 Anion Gap 7 L BUN 15 Creatinine 1.2 Creat Clearance w eGFR > 60 POC Glucometer 223 Random Glucose 237 H Calcium 7.9 L Phosphorus 3.1 Magnesium 2.2 Total Bilirubin 1.3 H AST 37 ALT 32 Alkaline Phosphatase 70 Total Protein 6.7 Albumin 3.2 L Free T4 0.81 Active Medications Generic Name Dose Route Start Last Admin Trade Name Freq PRN Reason Stop Dose Admin Heparin Sodium (Porcine) 5,000 unit 05/26/18 22:00 05/26/18 21:33 Heparin - SQ 5,000 unit BID [facility] Administration Sodium Chloride 1,000 mls @ 150 mls/hr 05/26/18 13:33 05/27/18 04:20 1/2 Normal Saline IV 150 mls/hr ASDIR [facility] Administration Insulin Aspart 1 vial 05/26/18 22:00 05/26/18 21:33 Novolog Vial Sliding Scale - SQ 6 units HS [facility] Administration Protocol Insulin Aspart 1 vial 05/26/18 16:30 05/27/18 06:07 Novolog Vial Sliding Scale - SQ 4 units TIDAC [facility] Administration Protocol Insulin Detemir 10 units 05/27/18 07:00 05/27/18 06:10 Levemir Vial SQ 10 units DAILY@0700 [facility] Administration Nystatin 500,000 units 05/26/18 18:00 05/27/18 05:44 Nystatin Oral Suspension - PO 500,000 units Q6HPO [facility] Administration Ranitidine HCl 150 mg 05/27/18 10:00 Zantac - PO DAILY [facility] ASSESSMENT/PLAN: Patient is a 42 year old male with no significant past medical history. He was admitted at [place] with complaints of weakness, and excessive thirst with urination. He was noted to have marked hyperglycemia, ALLEN with hyperkalemia. He was hydrated and transferred to [facility] for ICU admission for insulin drip. Endocrine Non-ketotic hyperosmolar hyperglycemia, improved New onset diabetes mellitus, Type 2 hmg a1c 10.4. On Levemir 15 units daily Novolog SS adjusted for tighter control Dietary consult Patient has been taught how to use sliding scale and self administer insulin Outpatient f/u with endocrine Renal Acute kidney injury, resolved stop IVF, encourge PO hydration recheck labs in a.m. Hypernatremia, resolved stop 1/2 NS, oral hydration encouraged Hyperkalemia, resolved Repeat cmp in am. fen encourage oral intake monitor electrolytes diabetic diet prophy heparin zantac Visit type - Emergency Visit Emergency Visit: Yes ED Registration Date: 05/25/18 Care time: The patient presented to the Emergency Department on the above date and was hospitalized for further evaluation of their emergent condition. - New Patient This patient is new to me today: Yes Date on this admission: 05/27/18 - Critical Care Critical Care patient: No - Discharge Referral Referred to [facility] Med P.C.: No
[2018-05-27] MEDS: HEPARIN NA (PORCINE) 5,000 UNITS/ML 1ML VIAL SQ SCH ×2 (11:42→21:18)
[2018-05-27] MEDS: RANITIDINE HCL 150 MG TABLET (FP) PO SCH (11:43)
[2018-05-27] MEDS ORDERED: INSULIN (LEVEMIR) 100 UNITS/ML UNITS SQ ONE (12:54)
[2018-05-28] MEDS: NYSTATIN 500,000 UNITS/5 ML SUSPENSION PO SCH ×2 (06:04→12:39)
[2018-05-28] MEDS: INSULIN SLIDING SCALE (NOVOLOG) 1 VIAL SQ SCH (06:05)
[2018-05-28] MEDS ORDERED: INSULIN (LEVEMIR) 100 UNITS/ML UNITS SQ SCH (07:00)
[2018-05-28 07:43] LABS: BASO % 0.1 % (0-2.0); EOS % 2.5 % (0-4.5); HEMATOCRIT 38.9 % (35.4-49); HEMOGLOBIN 13.6 GM/dL (11.7-16.9); MCH 28.2 pg (25.7-33.7); MCHC 34.9 g/dl (32.0-35.9); MEAN CELL VOLUME 80.8 fl (80-96); MEAN PLT VOLUME 8.9 fl (7.5-11.1); MONO % 7.6 % (3.8-10.2); NEUT % 60.8 % (42.8-82.8); PLATELET COUNT 106 K/MM3 (134-434); RBC 4.82 M/mm3 (4.00-5.60); RDW 13.4 % (11.9-15.9); WHITE BLOOD COUNT 4.8 K/mm3 (4.0-10.0)
[2018-05-28 09:04] LABS: ALBUMIN 3.3 g/dl (3.4-5.0); ALK PHOS 77 U/L (45-117); ANION GAP 7 MMOL/L (8-16); BILIRUBIN,TOTAL 0.9 mg/dL (0.2-1); BLOOD UREA NITROGEN 18 mg/dL (7-18); CALCIUM 8.6 mg/dL (8.5-10.1); CHLORIDE 109 mmol/L (98-107); CO2 26 mmol/L (21-32); CREATININE 1.3 mg/dL (0.55-1.3); GLUCOSE,RANDOM 266 mg/dL (74-106); POTASSIUM 4.3 mmol/L (3.5-5.1); SGOT/AST 25 U/L (15-37); SGPT/ALT 33 U/L (13-61); SODIUM 142 mmol/L (136-145)
--- NOTE | 2018-05-28 09:05 | PN ---
Progress Note (short form) - Note Progress Note: No complaints Feels good Vital Signs Period Temp Pulse Resp BP Sys/Roy Pulse Ox Last 24 Hr 97.8 F-98.6 F 68-80 16-18 116-141/72-94 97 PE: AOx3 Neck: Supple, No JVD HEENT: PERRL, EOMI Lungs: CTA CVS: S1 S2 Abd: Benign EXt: No edema Neuro: No focal deficit CMP Sodium 145 mmol/L (136-145) 05/27/18 05:40 Potassium 3.7 mmol/L (3.5-5.1) 05/27/18 05:40 Chloride 112 mmol/L (98-107) H 05/27/18 05:40 Carbon Dioxide 25 mmol/L (21-32) 05/27/18 05:40 Anion Gap 7 MMOL/L (8-16) L 05/27/18 05:40 BUN 15 mg/dL (7-18) 05/27/18 05:40 Creatinine 1.2 mg/dL (0.55-1.3) 05/27/18 05:40 Creat Clearance w eGFR > 60 (>60) 05/27/18 05:40 POC Glucometer 256 UNITS (80-120) 05/28/18 06:03 Random Glucose 237 mg/dL (74-106) H 05/27/18 05:40 Hemoglobin A1c % 10.4 % (4.2-6.3) H 05/25/18 07:30 Serum Osmolality 358 mosm/kg (278-305) H 05/25/18 07:30 Lactic Acid 1.4 mmol/L (0.4-2.0) 05/25/18 07:30 Calcium 7.9 mg/dL (8.5-10.1) L 05/27/18 05:40 Phosphorus 3.1 mg/dL (2.5-4.9) 05/27/18 05:40 Magnesium 2.2 mg/dL (1.8-2.4) 05/27/18 05:40 Total Bilirubin 1.3 mg/dL (0.2-1) H 05/27/18 05:40 AST 37 U/L (15-37) 05/27/18 05:40 ALT 32 U/L (13-61) 05/27/18 05:40 Alkaline Phosphatase 70 U/L (45-117) 05/27/18 05:40 Total Protein 6.7 g/dl (6.4-8.2) 05/27/18 05:40 Albumin 3.2 g/dl (3.4-5.0) L 05/27/18 05:40 Triglycerides 376 mg/dL (0-150) H 05/26/18 05:15 Cholesterol 219 mg/dL (50-200) H 05/26/18 05:15 Total LDL Cholesterol 98 mg/dL (5-100) 05/26/18 05:15 HDL Cholesterol 39 mg/dL (40-60) L 05/26/18 05:15 TSH 0.34 uIU/ml (0.358-3.74) L D 05/26/18 05:15 Free T4 0.81 ng/dl (0.76-1.16) 05/27/18 05:40 Free T3 1.9 pg/ml (2.0-4.4) L 05/27/18 05:40 Current Medications Generic Name Dose Route Start Last Admin Trade Name Adilsonq PRN Reason Stop Dose Admin Heparin Sodium (Porcine) 5,000 unit 05/26/18 22:00 05/27/18 21:18 Heparin - SQ 5,000 unit BID [facility] Administration Insulin Aspart 1 vial 05/27/18 16:30 05/28/18 06:05 Novolog Vial Sliding Scale - SQ 6 units ACHS [facility] Administration Protocol Insulin Detemir 15 units 05/28/18 07:00 05/28/18 06:06 Levemir Vial SQ 15 units DAILY@0700 [facility] Administration Nystatin 500,000 units 05/26/18 18:00 05/28/18 06:04 Nystatin Oral Suspension - PO 500,000 units Q6HPO [facility] Administration Ranitidine HCl 150 mg 05/27/18 10:00 05/27/18 11:43 Zantac - PO 150 mg DAILY [facility] Administration A/P Hyperosmolar Hyperglycemic Nonketotic State New onset diabetes mellitus, Type 2 : A1c 10.4 Acute kidney injury Dehydration Borderline low TSH: probably sick euthyroid Electrolyte replacement as necessary BGM QACHS Levemir 15 units daily Change Novolog coverage Dietary consult Teach pt to seft monitor and self Inject Insulin, Pt says he will be able to do it. Wants Insulin pens. Will need to get Rpt TSH, C peptide and ELANA Ab as outpt. S/S to hypoglycemia and response to it disucssed. Pt verbalizes understanding Pt to go home on current Insulin regimen. F/u in the office in 2 weeks. To call [phone] with any questions or concerns. Will f/u
[2018-05-28] MEDS: HEPARIN NA (PORCINE) 5,000 UNITS/ML 1ML VIAL SQ SCH (10:24)
[2018-05-28] MEDS: RANITIDINE HCL 150 MG TABLET (FP) PO SCH (10:24)
[2018-05-28] MEDS ORDERED: INSULIN SLIDING SCALE (NOVOLOG) 1 VIAL SQ SCH ×2 (11:00→22:00)
--- NOTE | 2018-05-28 11:20 | DS ---
Physical Exam: SUBJECTIVE: Patient seen and examined OBJECTIVE: for discharge home today with close follow up with endocrinogist Vital Signs Period Temp Pulse Resp BP Sys/Roy Pulse Ox Last 24 Hr 97.8 F-98.6 F 68-72 16-18 116-138/72-94 97 PHYSICAL EXAM GENERAL: The patient is awake, alert, and fully oriented, in no acute distress. HEAD: Normal with no signs of trauma. EYES: PERRL, extraocular movements intact, sclera anicteric, conjunctiva clear. No ptosis. ENT: Ears normal, nares patent, oropharynx clear without exudates, moist mucous membranes. NECK: Trachea midline, full range of motion, supple. ABDOMEN: Soft, nontender, nondistended, normoactive bowel sounds, no guarding EXTREMITIES: no edema. NEUROLOGICAL: Normal speech, gait not observed. PSYCH: Normal mood, normal affect. SKIN: Warm, dry, normal turgor, no rashes or lesions noted LABS Laboratory Results - last 24 hr 05/27/18 05/27/18 05/27/18 05:40 11:50 16:53 WBC RBC Hgb Hct MCV MCH MCHC RDW Plt Count MPV Absolute Neuts (auto) Neutrophils % Lymphocytes % Monocytes % Eosinophils % Basophils % Nucleated RBC % Sodium Potassium Chloride Carbon Dioxide Anion Gap BUN Creatinine Creat Clearance w eGFR POC Glucometer 295 248 Random Glucose Calcium Total Bilirubin AST ALT Alkaline Phosphatase Total Protein Albumin Free T3 1.9 L 05/27/18 05/28/18 05/28/18 21:30 06:03 06:20 WBC 4.8 RBC 4.82 Hgb 13.6 Hct 38.9 MCV 80.8 MCH 28.2 MCHC 34.9 RDW 13.4 Plt Count 106 L MPV 8.9 Absolute Neuts (auto) 2.9 Neutrophils % 60.8 Lymphocytes % 29.0 Monocytes % 7.6 Eosinophils % 2.5 Basophils % 0.1 Nucleated RBC % 0 Sodium Potassium Chloride Carbon Dioxide Anion Gap BUN Creatinine Creat Clearance w eGFR POC Glucometer 328 256 Random Glucose Calcium Total Bilirubin AST ALT Alkaline Phosphatase Total Protein Albumin Free T3 05/28/18 06:20 WBC RBC Hgb Hct MCV MCH MCHC RDW Plt Count MPV Absolute Neuts (auto) Neutrophils % Lymphocytes % Monocytes % Eosinophils % Basophils % Nucleated RBC % Sodium 142 Potassium 4.3 Chloride 109 H Carbon Dioxide 26 Anion Gap 7 L BUN 18 Creatinine 1.3 Creat Clearance w eGFR 59.97 POC Glucometer Random Glucose 266 H Calcium 8.6 Total Bilirubin 0.9 AST 25 ALT 33 Alkaline Phosphatase 77 Total Protein 7.0 Albumin 3.3 L Free T3 HOSPITAL COURSE: Date of Admission:05/25/18 Date of Discharge: 05/28/18 PREHOSPITAL COURSE: Patient is a 42 year old male with no significant past medical history. He was initally admitted at [place] with complaints of weakness, and excessive thirst with urination. He was noted to have marked hyperglycemia, ALLEN with hyperkalemia. He was hydrated and transferred to [facility] for ICU admission for insulin drip. HOSPITAL COURSE PROBLEM LIST: Endocrine Non-ketotic hyperosmolar hyperglycemia, improved New onset diabetes mellitus, Type 2 hmg a1c 10.4. On Levemir 15 units daily Novolog SS adjusted for tighter control. Will be discharged on Lantus Solar pen and Humalog Pen. Patient has been taught by nursing and nursing students in great detail how to inject insulin and follow sliding scale. He verbalizes understanding. He will follow up with Dr Cartwright as an outpatient. Renal Acute kidney injury, resolved Encourage adequate hydration Hypernatremia, resolved Repeat labs as an outpatient Hyperkalemia, resolved Repeat labs as an outpatient DISCHARGE PLAN: taught patient what DM II is and complications associated with diabetes that remains uncontrolled. He was also taught signs and symptoms of hypoglycemia. Patient adequately taught how to self administer insulin and use sliding scale He is to follow up with Dr. Cartwright in his office for further workup Also has agreed to follow up with a PCP (list of providers given to him) All medications called into his pharmacy and I provided my phone number in case he has questions He will be serviced by the [facility] at home for follow up Minutes to complete discharge: 60 Discharge Summary Reason For Visit: HYPEROSMOLARITY DUE TO TYPE 1 DIABETES MELLITUS Current Active Problems ALLEN (acute kidney injury) (Acute) Dehydration (Acute) Diabetes mellitus, new onset (Acute) Hyperglycemic crisis in diabetes mellitus (Acute) Hyperkalemia (Acute) Hyperosmolarity due to type 1 diabetes mellitus (Acute) Condition: Improved - Instructions Diet, Activity, Other Instructions: Mr. Hannon: You were diagnosed were new onset diabetes on admission. Here are our recommendations. DIABETES: Hyperglycemia, New Onset Diabetes It is important that you control your diabetes to prevent complications such as eye problems and problems with your legs. It also puts you at high risk for other health problems. Lantus is a LONG acting insulin (L means LONG) so it peaks in 8 hours HUMALOG Sliding Scale - HUMALOG IS A SHORT ACTING INSULIN If your blood sugar is give yourself this much insulin between 101-150 none between 151-200 2 between 201-250 4 between 251-300 6 between 301-350 8 between 351-400 10 over 400, please give yourself 12 units an repeat the reading in 15 minutes, if still high, call your provider or casting wheel operator to report it. If higher, please return to the ER. Follow ups: Please follow up with Dr. Cartwright (casting wheel operator) You will need further testing as an outpatient. If you do not have PCP (primary care doctor), we have a few referrals in your discharge packet. Please call them and make an appointment. signs of HYPOGLYCEMIA (LOW BLOOD SUGAR) - nausea, vomiting - feeling sweaty - anxiety - clammy - urge to eat sugar CHECK YOUR BLOOD SUGAR RIGHT AWAY. PLEASE PURCHASE GLUCOSE TABLETS (OVER THE COUNTER) IF YOUR BLOOD SUGAR DROPS. CHECK YOUR BLOOD SUGARS BEFORE AND AFTER EXERCISING. Please call me with any questions you may have. [facility] [phone] Referrals: Branden Pat MD [Staff Physician] - 1 Week Ton Chatman MD [Staff Physician] - 1 Week Tez Herrera MD [Staff Physician] - 1 Week Disposition: VNS/HOME HEALTH CARE - Home Medications Comprehensive Discharge Medication List: Ambulatory Orders Zantac 150 mg PO PRN PRN 10/13/12 Alcohol Antiseptic Pads [Alcohol Swabs] 1 each TP ACHS #1 med..pad 05/28/18 Insulin Glargine,Hum.rec.anlog [Lantus Solostar PEN (NF)] 15 units SQ HS #1 pen 05/28/18 Insulin Glargine,Hum.rec.anlog [Lantus Solostar PEN (NF)] 15 units SQ HS #5 pen 05/28/18 Insulin Lispro [Humalog Kwikpen U-100] 100 unit SQ ACHS #2 insuln.pen 05/28/18 Lancets [Lancets Ultra Thin] 1 each ACHS #1 box 05/28/18 Miscellaneous Medical Supply [Glucometer Device] 1 each SQ ASDIR 30 Days #1 kit MDD na 05/28/18 Miscellaneous Medical Supply [Glucometer Test Strips #100] 1 each SQ ASDIR #1 box 05/28/18 Nystatin Oral Suspension - [Nystatin Oral Susp 267559 Units/5 ML -] 5 ml PO Q6H #1 bottle 05/28/18 This patient is new to me today: No Emergency Visit: Yes ED Registration Date: 05/25/18 Care time: The patient presented to the Emergency Department on the above date and was hospitalized for further evaluation of their emergent condition. Critical Care patient: No - Discharge Referral Referred to [facility] Med P.C.: No
[2018-05-28 12:31] VITALS: BP 136/64; PULSE 83; TEMP 98.1
== END 2018-05-28 12:52 | disposition home health service (06) | DRG 638 ==
LOC: FER 02:10 → JICU 08:45 → J8W 05-26 13:06
PROVIDERS: ADMIT Internal Medicine; ATTEND Nurse Practitioner Family
PROC: 3E033VG Introduction of Insulin into Peripheral Vein, Percutaneous Approach (ICD-10-PCS; principal; 2018-05-25)
DX: E11.65 Type 2 diabetes mellitus with hyperglycemia (principal); N17.9 Acute kidney failure, unspecified; E87.0 Hyperosmolality and hypernatremia; E86.0 Dehydration; Z79.4 Long term (current) use of insulin; E87.5 Hyperkalemia; E86.9 Volume depletion, unspecified
CPT/HCPCS: 36415; 71045-TC-FY; 80048; 80053; 80061; 81003; 81015; 82009; 82803; 82962; 83036; 83605; 83721; 83735; 83930; 84100; 84439; 84443; 84481; 85025; 85027; 93005; 99285-25; J1644; J7030

== ENCOUNTER 2019-04-14 02:04 | Emergency (ER) | payer BC ==
--- NOTE | 2019-04-14 02:09 | PDOC ---
History of Present Illness - General Chief Complaint: Weakness Stated Complaint: TIREDNESS Time Seen by Provider: 04/14/19 02:08 - History of Present Illness Initial Comments: 04/14/19 02:37 This 43-year-old man with a history of DM (characterized by the patient as "prediabetes") presents with few day history of fatigue. 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 He denies headache/ nausea/vomiting/diarrhea/chest or abdominal pain/lightheadedness/vision changes/ fever. Past medical history significant for episode of hyperosmolar nonketotic hyperglycemia in May,. Patient presented here with blood sugar of 1000 and was hospitalized for insulin infusion. He recovered quickly and was discharged on daily insulin. Since then, he has been followed by Dr. Herrera from [facility] endocrinology staff. He states that he is careful to maintain a diabetic diet and to hydrate himself. He states that his blood sugar level gradually normalized and that he no longer needs daily insulin. He last saw Dr. Herrera in November. Although he monitors his blood glucose, he admits he rarely covers hyperglycemia with insulin as previously taught. He states that he hydrates himself with tea and water if his blood sugar is high. Today, he states that his blood sugar level was in the 350 range He denies any recent infection or dietary indiscretion. Past History - Past Medical History Allergies/Adverse Reactions: Allergies Allergy/AdvReac Type Severity Reaction Status Date / Time No Known Allergies Allergy Verified 04/14/19 03:37 Home Medications: Ambulatory Orders metFORMIN HCL [Metformin HCl] 500 mg PO DAILY #30 tablet 04/14/19 Anemia: No Asthma: No Cancer: No Cardiac Disorders: No CVA: No COPD: No CHF: No Diabetes: No HTN: No Hypercholesterolemia: No - Psycho Social/Smoking Cessation Hx Smoking Status: No Smoking History: Unknown if ever smoked Have you smoked in the past 12 months: No Number of Cigarettes Smoked Daily: 0 Hx Alcohol Use: No Drug/Substance Use Hx: No Substance Use Type: None Review of Systems - Review of Systems Able to Perform ROS?: Yes Comments:: 12 point review of systems is negative except for what is noted in the history of present illness *Physical Exam - Physical Exam GENERAL: Adult male, appearing fatigued but alert and oriented x3 HEAD: Normal with no signs of trauma. EYES: PERRLA, EOMI, sclera anicteric, conjunctiva clear. ENT: Ears normal, nares patent, oropharynx clear without exudates. Dry mucous membranes. NECK: Normal range of motion, supple without lymphadenopathy, JVD, or masses. LUNGS: Breath sounds equal, clear to auscultation bilaterally. No wheezes, and no crackles. HEART:Regular rate and rhythm, normal S1 and S2 without murmur, rub or gallop. ABDOMEN:.normal bowel sounds No guarding,tenderness or rebound.No masses No distention. EXTREMITIES: Normal range of motion, no edema. No clubbing or cyanosis. No erythema, or tenderness. NEUROLOGICAL: Cranial nerves II through XII grossly intact. Normal speech. No focal neurologic deficits MUSCULOSKELETAL: Back non-tender to palpation, no CVA tenderness SKIN: Warm, Dry, normal turgor, no rashes or lesions noted. ED Treatment Course - LABORATORY CBC & Chemistry Diagram: 04/14/19 02:45 04/14/19 02:45 Medical Decision Making - Medical Decision Making This 43-year-old man with a history of DM, diagnosed earlier this year when he presented with hyperosmolar nonketotic hyperglycemia, presents with fatigue. He has no other significant symptoms currently. Patient states that, although he presented with marked hyperglycemia and subsequently was treated with daily insulin, he gradually no longer required daily insulin dose. He controls his blood sugar with proper diet and hydration when fingerstick monitoring indicates he is hyperglycemic. He states he is currently fatigued because he has been working excessively for the last several days. Fingerstick glucose measured at 283 Chemistry profile,VBG and CBC will be evaluated in light of patient's previous history(K was 5.4 and Cre was 2.2 on presentation in May). 1 L of normal saline IV hydration started 04/14/19 04:25 Laboratory evaluation reveals essentially normal CBC. Chemistry profile notable for normal electrolytes; moderate elevation of BUN and creatinine (21/ 1.6) Normal anion gap(9) venous blood gas notable for normal pH 7.33; PCO2 is slightly high but HCO3 is normal. Patient reports feeling better after 1 L normal saline IV. Repeat fingerstick glucose is 259. Patient reveals that he is supposed to be taking metformin 500 mg daily but does not want to take oral medication as well as needing to use insulin. It was explained to the patient if he is taking metformin on a daily basis,it is much more likely that his blood sugar will be normal and he will not need to cover with insulin. He has run out of his metformin and refill of 500 mg daily, #30 sent to his pharmacy. Patient must continue to rehydrate with fluids as previously and maintain a strict diabetic diet. Patient is on vacation from his work this week and will be able to rest ,pay attention to his diet and hydrate. Follow-up with his storage facility rental clerk is imperative within the next 3 to 4 days. If the patient has extreme, persistent fatigue, if he develops fever/vomiting/ diarrhea or if he has persistent hyperglycemia on fingerstick that does not respond to insulin coverage, he should return to the emergency room immediately Discharge - Discharge Information Problems reviewed: Yes Clinical Impression/Diagnosis: Dehydration Diabetes mellitus Qualifiers: Diabetes mellitus type: type 2 Diabetes mellitus termination clerk insulin use: unspecified jail insulin use status Diabetes mellitus complication status: without complication Qualified Code(s): E11.9 - Type 2 diabetes mellitus without complications Condition: Stable Disposition: HOME - Additional Discharge Information Prescriptions: metFORMIN HCL [Metformin HCl] 500 mg PO DAILY #30 tablet - Follow up/Referral Referrals: Tez Herrera MD [Staff Physician] - 3 days - Patient Discharge Instructions Patient Printed Discharge Instructions: DI for Hyperglycemia -- Adult Additional Instructions: Rest; continue oral rehydration Maintain strict diabetic diet metformin 500mg daily Continue blood sugar monitoring and coverage with insulin as previously advised Follow-up with Dr. Herrera within the next 3 to 4 days Return to ER if you have excessive thirst, extreme fatigue, persistent high blood sugar on monitor - Post Discharge Activity
[2019-04-14 02:13] VITALS: BP 135/89; PULSE 97; TEMP 98.4; BMI 26.4
[2019-04-14] MEDS ORDERED: SODIUM CHLORIDE 1,000 ML IV STA (02:29)
[2019-04-14 03:17] LABS: BASO % 0.2 % (0-2.0); EOS % 0.5 % (0-4.5); HEMATOCRIT 48.2 % (35.4-49); LYMPH % 19.7 % (8-40); MCH 27.3 pg (25.7-33.7); MCHC 33.1 g/dl (32.0-35.9); MEAN CELL VOLUME 82.3 fl (80-96); MONO % 6.5 % (3.8-10.2); NEUT % 73.1 % (42.8-82.8); PLATELET COUNT 196 K/MM3 (134-434); RBC 5.85 M/mm3 (4.00-5.60); RDW 13.7 % (11.9-15.9); WHITE BLOOD COUNT 8.8 K/mm3 (4.0-10.0)
[2019-04-14 03:18] LABS: VENOUS PC02 54.6 mmHg (38-52); VENOUS PH 7.33 (7.31-7.41)
[2019-04-14 03:22] LABS: VENOUS PO2 < 49 mmHg (28-48)
[2019-04-14 04:02] LABS: ALBUMIN 4.4 g/dl (3.4-5.0); BILIRUBIN,TOTAL 1.6 mg/dL (0.2-1); BLOOD UREA NITROGEN 20.8 mg/dL (7-18); CREATININE 1.6 mg/dL (0.55-1.3); POTASSIUM 3.9 mmol/L (3.5-5.1); TOT PROT 8.6 g/dl (6.4-8.2)
== END 2019-04-14 04:23 | disposition home or self-care (01) ==
LOC: FER 02:04
PROC: 3E0337Z Introduction of Electrolytic and Water Balance Substance into Peripheral Vein, Percutaneous Approach (ICD-10-PCS; principal; 2019-04-14)
DX: E86.0 Dehydration (principal); E11.9 Type 2 diabetes mellitus without complications; Z79.4 Long term (current) use of insulin
CPT/HCPCS: 36415; 80053; 82803; 82962; 85025; 99284-25; J7030

== ENCOUNTER 2019-06-09 12:52 | Emergency (ER) | payer BC ==
[2019-06-09 12:58] VITALS: BMI 25.3
--- NOTE | 2019-06-09 13:14 | PDOC ---
History of Present Illness - General Chief Complaint: Vomiting/Diarrhea Stated Complaint: dehydration Time Seen by Provider: 06/09/19 12:53 - History of Present Illness Initial Comments: 06/09/19 12:58 43 yo M PMH type 2 diabetes with episode of HHS in May 2018, presenting with "dehydration". Patient has been feeling "not well" over the past five days. Over that time period, he has not eaten and has been drinking more fluids than usual. Further states that he has not had a bowel movement for the past 4 days, but reports that he isn't concerned because this happens when he is dehydrated. Saw his speaker mounter Dr. Cartwright 2 weeks ago, who changed his metformin to BID and discontinued his insulin. Patient has been taking metformin only intermittently because it makes him "feel bad", so he has been using sliding scale with his leftover insulin as well. BGM this morning was reportedly in the 200s. Has endocrinology appointment tomorrow morning. Denies N/V, fevers/chills, constipation/diarrhea, pain. Past History - Past Medical History Allergies/Adverse Reactions: Allergies Allergy/AdvReac Type Severity Reaction Status Date / Time No Known Allergies Allergy Verified 06/09/19 12:53 Home Medications: Ambulatory Orders metFORMIN HCL [Metformin HCl] 500 mg PO DAILY #30 tablet 04/14/19 Anemia: No Asthma: No Cancer: No Cardiac Disorders: No CVA: No COPD: No CHF: No Diabetes: No HTN: No Hypercholesterolemia: No - Psycho Social/Smoking Cessation Hx Smoking Status: No Smoking History: Unknown if ever smoked Have you smoked in the past 12 months: No Number of Cigarettes Smoked Daily: 0 Information on smoking cessation initiated: No Hx Alcohol Use: No Drug/Substance Use Hx: No Substance Use Type: None Review of Systems - Review of Systems Comments:: 06/10/19 14:09 GENERAL/CONSTITUTIONAL: denies fever, chills, diaphoresis, generalized weakness , malaise, loss of appetite, weight change HEAD, EYES, EARS, NOSE AND THROAT: endorses difficulty swallowing. Denies rhinorrhea, nasal congestion, throat pain, throat swelling, mouth swelling, ear pain, eye pain, visual changes NEUROLOGIC: denies headache, focal weakness or paresthesias, dizziness, unsteady gait, seizure, mental status changes, bladder or bowel incontinence CARDIOVASCULAR: denies chest pain, syncope, palpitations, irregular heart rate, lightheadedness, peripheral edema RESPIRATORY: denies cough, shortness of breath, dyspnea with exertion, orthopnea , wheezing, stridor, hemoptysis GASTROINTESTINAL: endorses constipation. Denies abdominal pain, abdominal distension, nausea, vomiting, diarrhea, melena, hematochezia GENITOURINARY: denies dysuria, frequency, urgency, hesitancy, hematuria, flank pain, genital pain MUSCULOSKELETAL: denies myalgia, arthralgia, joint swelling, back pain, neck pain SKIN: denies rash, itching, pallor HEMATOLOGIC/IMMUNOLOGIC: denies easy bleeding, easy bruising, lymphadenopathy, frequent infections ENDOCRINE: endorses increased thirst. Denies unexplained weight gain, unexplained weight loss, heat intolerance, cold intolerance PSYCHIATRIC: denies anxiety, depression, suicidal or homicidal ideation, hallucinations *Physical Exam - Vital Signs Last Vital Signs Temp Pulse Resp BP Pulse Ox 97.8 F 123 H 20 134/71 100 06/09/19 12:53 06/09/19 12:53 06/09/19 12:53 06/09/19 12:53 06/09/19 12:53 - Physical Exam 06/09/19 16:31 GENERAL: Awake, alert, and fully oriented, in no acute distress. HEAD: Normal with no signs of trauma. EYES: Pupils equal, round and reactive to light, extraocular movements intact, sclera anicteric, conjunctiva clear. No lid lag. EARS, NOSE, THROAT: Ears normal, nares patent, oropharynx clear without exudates. Dry mucous membranes. NECK: Normal range of motion, supple without lymphadenopathy or JVD LUNGS: Breath sounds equal, clear to auscultation bilaterally. No wheezes, and no crackles. No accessory muscle use. HEART: Tachycardic, regular rhythm, normal S1 and S2 without murmur, rub or gallop. ABDOMEN: Soft, nontender, non-distended, normoactive bowel sounds, negative guarding, negative rebound MUSCULOSKELETAL: Normal range of motion at all joints. No bony deformities or tenderness. No CVA tenderness. UPPER EXTREMITIES: 2+ pulses, warm, well-perfused. No cyanosis. No clubbing. Cap refill <2 seconds. No peripheral edema. LOWER EXTREMITIES: 2+ pulses, warm, well-perfused. No calf tenderness. No peripheral edema. NEUROLOGICAL: Cranial nerves II-XII intact. Normal speech. Normal gait. PSYCHIATRIC: Cooperative. Good eye contact. Appropriate mood and affect. SKIN: Warm, dry, normal turgor, no rashes or lesions noted. ED Treatment Course - LABORATORY CBC & Chemistry Diagram: 06/09/19 13:31 06/09/19 16:26 Medical Decision Making - Medical Decision Making 06/09/19 13:15 Concern for HHS vs DKA. - CBC, CMP - IVF 06/09/19 14:22 Glucose 802, but anion gap of 16. Bilirubin 2.4. Will give more fluid. 06/09/19 15:51 Patient refuses admission. Will continue to give fluids, get repeat BMP. 06/09/19 16:55 Repeat glucose 354. Will give one more liter, recheck finger stick. 06/09/19 17:57 Repeat finger stick in 250s, will dc patient for close follow-up tomorrow with speaker mounter. Discharge - Discharge Information Problems reviewed: Yes Clinical Impression/Diagnosis: Hyperglycemia Condition: Improved Disposition: HOME - Admission No - Follow up/Referral - Patient Discharge Instructions Patient Printed Discharge Instructions: DI for Hyperglycemia -- Adult Additional Instructions: You were seen with a sugar of 802. This improved with multiple liters of fluid. However, it is extremely important that you go to your endocrinology appointment tomorrow morning and discuss the next best steps, as your current regimen is not working. Follow up with your primary care doctor within one week. Return to the ED if you develop worsening symptoms. - Post Discharge Activity
[2019-06-09] MEDS ORDERED: LACTATED RINGERS SOLUTION 1,000 ML/1,000 ML INFUS.BAG IV STA ×5 (13:16→17:05)
[2019-06-09 13:45] LABS: BASO % 0.3 % (0-2.0); EOS % 0.2 % (0-4.5); HEMATOCRIT 48.8 % (35.4-49); HEMOGLOBIN 15.5 GM/dl (11.7-16.9); LYMPH % 22.7 % (8-40); MCH 27.7 pg (25.7-33.7); MCHC 31.9 g/dl (32.0-35.9); MEAN PLT VOLUME 10.4 fl (7.5-11.1); MONO % 4.4 % (3.8-10.2); NEUT % 72.4 % (42.8-82.8); PLATELET COUNT 186 K/MM3 (134-434); RBC 5.61 M/mm3 (4.00-5.60); RDW 12.6 % (11.9-15.9); WHITE BLOOD COUNT 6.3 K/mm3 (4.0-10.8)
[2019-06-09 13:53] LABS: BILIRUBIN,TOTAL 2.4 mg/dl (0.2-1); CALCIUM 9.5 mg/dl (8.5-10); CREATININE 1.5 mg/dl (0.55-1.3); POTASSIUM 4.5 mmol/L (3.5-5.1); TOT PROT 7.7 g/dl (6.4-8.2)
--- NOTE | 2019-06-09 13:54 | PDOC ---
Attending Attestation - Resident Resident Name: Rip Swanson - ED Attending Attestation I have performed the following: I have examined & evaluated the patient, The case was reviewed & discussed with the resident, I agree w/resident's findings & plan, Exceptions are as noted - HPI HPI: 06/09/19 16:13 43 yo male h/o DM , h/o noncompliance with medication here with c/o feeling dehydrated. pt states he has been taking his metformin only sometimes. feels dry mouth, going to bathroom frequently and dizzy. no f/c no cp no sob. has been feeling constipated no other complaints - Physicial Exam PE: 06/09/19 16:24 awake alert dry mucous membranes. lungs clear bilat heart rrr no mrg abd soft nt nd ext wwp. no edema. no calf tenderness. - Medical Decision Making 06/09/19 16:24 43 male h/o DM here with dehydration c/o constipation and likley high sugars. plan to send labs r/o dka , hyperosmolar hyperglycemia, hydration. pt sugar was 800, normal gap. hydrated wtih 3 L NS. refusing to stay in hospital. 06/09/19 17:11 pt sugar down to 354 after hydration. refused admission for glucose control. has appointment tomorrow with his doctor.
[2019-06-09 16:51] LABS: CALCIUM 8.6 mg/dl (8.5-10); CREATININE 1.1 mg/dl (0.55-1.3)
[2019-06-09 17:31] VITALS: BP 136/83; PULSE 72; TEMP 98.5
== END 2019-06-09 18:26 | disposition home or self-care (01) ==
LOC: FER 12:52
PROC: 3E0337Z Introduction of Electrolytic and Water Balance Substance into Peripheral Vein, Percutaneous Approach (ICD-10-PCS; principal; 2019-06-09)
DX: E11.65 Type 2 diabetes mellitus with hyperglycemia (principal); Z79.4 Long term (current) use of insulin
CPT/HCPCS: 36415; 80048; 80053; 82010; 82962; 85025; 99283-25

== ENCOUNTER 2019-06-14 00:13 | Emergency (ER) | payer BC ==
[2019-06-14 00:22] VITALS: BP 124/91; PULSE 111; TEMP 98.2; BMI 25.3
--- NOTE | 2019-06-14 00:36 | PDOC ---
History of Present Illness - General Chief Complaint: Lethargy Stated Complaint: TIREDNESS/WEAKNESS Time Seen by Provider: 06/14/19 00:35 History Source: Patient Exam Limitations: No Limitations - History of Present Illness Initial Comments: 06/14/19 00:38 43-year-old male brought in by his mother for evaluation of not feeling well. Patient said he feels like he is dehydrated. Patient denies any nausea vomiting or diarrhea. Patient denies any fevers or chills cough congestion. Patient is a type II diabetic on metformin and says he has not been taking his metformin and his sugar here in the ED is over 300. Patient denies any headaches body aches or any other complaints. Allergies: as per nursing notes Past Medical History: none Social history: Lives with family. No smoking. No alcohol. No illicit drugs. Surgical history: None General: No fevers or chills, no weakness, no weight loss HEENT: No change in vision. No sore throat,. No ear pain CardioVascular: no chest discomfort. No shortness of breath Respiratory:No cough, or wheezing. Gastrointestinal: no nausea, vomiting, diarrhea or constipation, No rectal bleeding Genitourinary: No dysuria, hematuria, or frequency Musculoskeletal: No joint or muscle pain or swelling Neurologic: No headache, vertigo, dizziness or loss of consciousness Psychiatric: nor depression Skin: No rashes or easy bruising Endocrine: no increased thirst or abnormal weight change Allergic: no skin or latex allergy All other systems reviewed and normal Exam: General: Well-nourished well-developed individual, no acute distress HEENT: Throat: Normal, tonsils normal, no erythema or exudate Neck: Supple, no meningeal signs, no lymphadenopathy Eyes::Pupils equal reactive and round, extraocular motion intact Chest: Nontender to palpation Cardiac: S1-S2 normal, regular rate and rhythm, no murmurs rubs or gallops Respiratory: Lungs clear to auscultation bilateral Abdomen: Soft, nondistended, normal bowel sounds, there is no tenderness on palpation diffusely Extremities: Warm, dry, no cyanosis, clubbing, or edema Skin: No rashes Neuro: Alert and oriented x3, CN II - XII intact, nonfocal exam with normal strength, normal sensation, normal reflexes, normal gait, Psych: Normal mood and affect Past History - Past Medical History Allergies/Adverse Reactions: Allergies Allergy/AdvReac Type Severity Reaction Status Date / Time No Known Allergies Allergy Verified 06/09/19 12:53 Home Medications: Ambulatory Orders metFORMIN HCL [Metformin HCl] 1,000 mg PO BID 06/14/19 Anemia: No Asthma: No Cancer: No Cardiac Disorders: No CVA: No COPD: No CHF: No Diabetes: Yes HTN: No Hypercholesterolemia: No - Psycho Social/Smoking Cessation Hx Smoking Status: No Smoking History: Never smoked Have you smoked in the past 12 months: No Number of Cigarettes Smoked Daily: 0 Hx Alcohol Use: No Drug/Substance Use Hx: No Substance Use Type: None *Physical Exam - Vital Signs Last Vital Signs Temp Pulse Resp BP Pulse Ox 98.2 F 111 H 18 124/91 98 06/14/19 00:14 06/14/19 00:14 06/14/19 00:14 06/14/19 00:14 06/14/19 00:14 ED Treatment Course - LABORATORY CBC & Chemistry Diagram: 06/14/19 00:40 06/14/19 00:40 - ADDITIONAL ORDERS Additional order review: Laboratory Results 06/14/19 00:32 POC Glucometer 371 06/14/19 00:32 POC Glucometer 371 Discharge - Discharge Information Problems reviewed: Yes Clinical Impression/Diagnosis: Hyperglycemia Condition: Stable Disposition: HOME - Admission No - Follow up/Referral - Patient Discharge Instructions Additional Instructions: Is important that you follow-up with your doctor on Saturday. If your metformin is not agreeing with you and you are not taking it and as a result you are not feeling well then you need to be switched to something else that works for you better. Return to the emergency department immediately with ANY new, persistent or worsening symptoms. Continue any medications as previously prescribed by your physician. You should follow up with your primary doctor as soon as possible regarding today's emergency department visit. . Please make sure your doctor reviews the results of your emergency evaluation. Thank you for coming to the Emergency Department today for your care. It was a pleasure to see you today. Please note that your evaluation is INCOMPLETE until you follow-up with your doctor. - Post Discharge Activity
[2019-06-14] MEDS ORDERED: INSULIN REGULAR HUMAN 100 UNITS/ML *VIAL IVPUSH ONE (00:40)
[2019-06-14] MEDS ORDERED: SODIUM CHLORIDE 1,000 ML IV ONE (00:40)
[2019-06-14] MEDS ORDERED: INSULIN REGULAR HUMAN 100 UNITS/ML *VIAL ONE (00:47)
[2019-06-14 01:17] LABS: BASO % 0.5 % (0-2.0); EOS % 0.2 % (0-4.5); HEMATOCRIT 49.1 % (35.4-49); HEMOGLOBIN 16.1 GM/dL (11.7-16.9); LYMPH % 28.7 % (8-40); MCH 27.7 pg (25.7-33.7); MCHC 32.8 g/dl (32.0-35.9); MEAN CELL VOLUME 84.5 fl (80-96); MEAN PLT VOLUME 10.2 fl (7.5-11.1); MONO % 5.8 % (3.8-10.2); NEUT % 64.8 % (42.8-82.8); PLATELET COUNT 179 K/MM3 (134-434); RBC 5.81 M/mm3 (4.00-5.60); RDW 13.8 % (11.9-15.9)
[2019-06-14 01:48] LABS: ALBUMIN 3.9 g/dl (3.4-5.0); BILIRUBIN,TOTAL 1.2 mg/dL (0.2-1); BLOOD UREA NITROGEN 20.8 mg/dL (7-18); CALCIUM 9.9 mg/dL (8.5-10.1); CREATININE 1.7 mg/dL (0.55-1.3); POTASSIUM 4.3 mmol/L (3.5-5.1); TOT PROT 8.3 g/dl (6.4-8.2)
[2019-06-14] MEDS ORDERED: INSULIN REGULAR HUMAN 100 UNITS/ML *VIAL SQ ONE (02:02)
[2019-06-14] MEDS ORDERED: INSULIN (NOVOLOG) ASPART 100 UNITS/ML 10ML VIAL ONE (02:05)
[2019-06-14] MEDS ORDERED: INSULIN (LEVEMIR) 100 UNITS/ML UNITS SQ SCH (22:00)
== END 2019-06-14 02:08 | disposition home or self-care (01) ==
LOC: FER 00:13
PROC: 3E033VG Introduction of Insulin into Peripheral Vein, Percutaneous Approach (ICD-10-PCS; principal; 2019-06-14)
PROC: 3E013VG Introduction of Insulin into Subcutaneous Tissue, Percutaneous Approach (ICD-10-PCS; 2019-06-14)
DX: E11.65 Type 2 diabetes mellitus with hyperglycemia (principal)
CPT/HCPCS: 36415; 80053; 82962; 85025; 99284-25; J7030

== ENCOUNTER 2020-01-15 10:35 | Emergency (ER) | payer BC ==
[2020-01-15] MEDS ORDERED: SODIUM CHLORIDE 1,000 ML IV ONE ×2 (10:40→12:10)
[2020-01-15 10:41] VITALS: TEMP 97.8; BMI 21.1
--- NOTE | 2020-01-15 10:56 | PDOC ---
History of Present Illness - General Stated Complaint: "I FEEL DEHYDRATED" Time Seen by Provider: 01/15/20 10:39 History Source: Patient Exam Limitations: No Limitations - History of Present Illness Initial Comments: 01/15/20 10:56 44y M hx of IDDM, [facility] presents with 2 days of generally weakness and feeling dehydrated. THe patient states that he is not compliant with checking his blood suguar and taking his insulin. He denies any abdominal pain, n/v, cp, sob, palpitations ,f/c, cough dysuria, diarrhea. Pt does endorse feeling more thirsty than usual but dnies any polyuria. when he checks his blood sugar, he typically runs in the high hundreds/200s but suspects it may be higher today. denies recerational drug use, etoh abuse ROS: Constitutional - no reported Fever, Chills, HEENT: no reported vision changes, sore throat Respiratory: no reported cough, sob, hemoptysis Cardiac: no reported chest pain, palpitations, light headedness, leg swelling Abd/GI: no reported abd pain, nausea, vomiting, blood per rectum, melena, diarrhea : no reported dysuria, frequency, discharge Musculskelatal - no reported back pain, joint swelling skin - no reported bruising, erythema, rash neurological: no reported headache, numbness, focal weakness, tingling, ataxia, hematologic: no reported easy bruising, easy bleeding Physicial Exam GENERAL: The patient is awake, alert, and fully oriented, Nontoxic - in no acute distress. HEAD: Normocephalic, atraumatic. EYES: extraocular movements intact, sclera anicteric, conjunctiva clear. ENT: Normal voice, dry mucous membranes. NECK: Normal range of motion, supple LUNGS: Breath sounds equal, clear to auscultation bilaterally. No wheezes, no rhonchi, no rales. HEART: tachycardic, normal S1 and S2 without murmur, rub or gallop. ABDOMEN: Soft, nontender, No guarding, no rebound. No CVA tenderness EXTREMITIES: Normal range of motion, no edema. NEUROLOGICAL: No facial assymetry, Normal speech, PSYCH: Normal mood, normal affect. SKIN: Warm, Dry, normal turgor, will obtain lab work to r/o metabolic derangeent/dka/hhs will give fluids for hydration will erasess Past History - Medical History Allergies/Adverse Reactions: Allergies Allergy/AdvReac Type Severity Reaction Status Date / Time No Known Allergies Allergy Verified 01/15/20 10:38 Home Medications: Ambulatory Orders metFORMIN HCL [Metformin HCl] 1,000 mg PO BID 06/14/19 Anemia: No Asthma: No Cancer: No Cardiac Disorders: No CVA: No COPD: No CHF: No Diabetes: No HTN: No Hypercholesterolemia: No - Psycho-Social/Smoking History Smoking Status: No Smoking History: Unknown if ever smoked Have you smoked in the past 12 months: No Number of Cigarettes Smoked Daily: 0 Information on smoking cessation initiated: No - Substance Abuse Hx (Audit-C & DAST Scrn) How often the patient has a drink containing alcohol: Never Score: In Men: 4 or > Positive; In Women: 3 or > Positive: 0 Screen Result (Pos requires Nsg. Audit-10AR): Negative In the last yr the pt used illegal drug/Rx for NonMed reason: No Score: Yes response is considered Positive: 0 Screen Result (Positive result requires Nsg. DAST-10): Negative *Physical Exam - Vital Signs Last Vital Signs Temp Pulse Resp BP Pulse Ox 97.8 F 128 H 20 142/79 98 01/15/20 10:35 01/15/20 10:35 01/15/20 10:35 01/15/20 10:35 01/15/20 10:35 Heart Score/ECG Review - ECG Impressions Comment:: 01/15/20 13:56 Twelve-lead EKG was performed and reviewed by me. There is normal sinus rhythm with a normal rate. Rate of 98 The axis is normal. The intervals are normal. There is normal R wave progression T wave abnormality ED Treatment Course - LABORATORY CBC & Chemistry Diagram: 01/15/20 11:00 01/15/20 11:00 Medical Decision Making - Medical Decision Making 01/15/20 13:52 pt feeling improved vitals normalized labs reviewed, noted for hypergylcemia vbg noted for mild acidosis, but without signs of low bicarb. 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 Make sure you follow-up with your primary care doctor to have your blood sugar m onitored. Ensure that you are using your insulin and metformin appropriately. You MUST call and follow up with your doctor tomorrow for further evaluation of your symptoms. Results were discussed with you. Please make sure your doctor reviews the results of your emergency evaluation. Your Emergency Department visit is not complete without a follow up with your doctor. Print Language: TAMAZIGHT - Post Discharge Activity
--- OUTSIDE RECORDS SUMMARY | 2020-01-15 11:13 | XMS ---
:1975 Author Organization [facility] Support Name Relationship Address Phone [facility] [place] [place] [address] [address] Unavailable Unavailable Unavailable IVORY HILARIO MOTHER [id number], [address] [phone] [place] [address] Re-disclosure Warning The records that you are about to access may contain information from federally- assisted alcohol or drug abuse programs. If such information is present, then the following federally mandated warning applies: This information has been disclosed to you from records protected by federal confidentiality rules (42 CFR part 2). The federal rules prohibit you from making any further disclosure of this information unless further disclosure is expressly permitted by the written consent of the person to whom it pertains or as otherwise permitted by 42 CFR part 2. A general authorization for the release of medical or other information is NOT sufficient for this purpose. The Federal rules restrict any use of the information to criminally investigate or prosecute any alcohol or drug abuse patient.The records that you are about to access may contain highly sensitive health information, the redisclosure of which is protected by Article 27-F of the [facility] Public Health law. If you continue you may haveaccess to information: Regarding HIV / AIDS; Provided by facilities licensed or operated by the [facility] Office of Mental Health; or Provided by the [facility] Office for People With Developmental Disabilities. If such information is present, then the following [facility] mandated warning applies: This information has been disclosed to you from confidential records which are protected by state law. State law prohibits you from making any further disclosure of this information without the specific written consent of the person to whom it pertains, or as otherwise permitted by law. Any unauthorized further disclosure in violation of state law may result in a fine or group home sentence or both. A general authorization for the release of medical or other information is NOT sufficient authorization for further disclosure. Insurance Providers Payer name Policy type Policy ID Covered Covered alliance party's Policy P stanley / Coverage alliance party ID relationship to Andino Inf ormation type andino SCOTT [id number] BC/BS 01 BC OUT OF [id number] SP [id number] STATE 01 BC OUT OF [id number] SP [id number] STATE 01 BC OUT OF [id number] SP [id number] [place] [id number]
[2020-01-15 11:36] VITALS: BP 146/83; PULSE 93
[2020-01-15 11:36] LABS: ALBUMIN 4.2 g/dl (3.4-5.0); BILIRUBIN,TOTAL 3.1 mg/dl (0.2-1); CALCIUM 9.5 mg/dl (8.5-10); CREATININE 1.2 mg/dl (0.55-1.3); POTASSIUM 3.7 mmol/L (3.5-5.1); TOT PROT 7.7 g/dl (6.4-8.2)
[2020-01-15 11:39] LABS: BASO % 1.1 % (0-2.0); EOS % 0.5 % (0-4.5); HEMATOCRIT 47.3 % (35.4-49); HEMOGLOBIN 15.2 GM/dl (11.7-16.9); LYMPH % 28.7 % (8-40); MCH 27.3 pg (25.7-33.7); MCHC 32.1 g/dl (32.0-35.9); MONO % 7.1 % (3.8-10.2); NEUT % 62.6 % (42.8-82.8); PLATELET COUNT 224 K/MM3 (134-434); RBC 5.56 M/mm3 (4.00-5.60); RDW 13.3 % (11.9-15.9); WHITE BLOOD COUNT 6.8 K/mm3 (4.0-10.8)
[2020-01-15 12:22] LABS: VENOUS BASE EXCESS -3.8 mmol/L (-2-2); VENOUS O2 SATURATION 24.8 % (70-80); VENOUS PCO2 51.8 mmHg (38-52); VENOUS PH 7.278 (7.310-7.410)
--- NOTE | 2020-01-16 16:13 | EKG ---
Test Reason : Blood Pressure : / mmHG Vent. Rate : 098 BPM Atrial Rate : 098 BPM P-R Int : 148 ms QRS Dur : 084 ms QT Int : 302 ms P-R-T Axes : 072 058 055 degrees QTc Int : 385 ms NORMAL SINUS RHYTHM NONSPECIFIC T WAVE ABNORMALITY ABNORMAL ECG WHEN COMPARED WITH ECG OF 25-MAY-2018 06:25, ST ELEVATION NOW PRESENT IN ANTERIOR LEADS T WAVE INVERSION NO LONGER EVIDENT IN ANTERIOR LEADS QT HAS SHORTENED Confirmed by MD Dong, Wali ([id number]) on 01/16/2020 4:13:36 PM Referred By: ANIL PUGH Confirmed By:Wali Umana MD
== END 2020-01-15 14:04 | disposition home or self-care (01) ==
LOC: FER 10:35
PROC: 3E0337Z Introduction of Electrolytic and Water Balance Substance into Peripheral Vein, Percutaneous Approach (ICD-10-PCS; principal; 2020-01-15)
DX: E86.0 Dehydration (principal); E11.65 Type 2 diabetes mellitus with hyperglycemia
CPT/HCPCS: 36415; 80053; 82010; 82803; 82962; 85025; 93005; 99285-25

== ENCOUNTER 2020-07-13 22:49 | Inpatient (IN) | payer BC ==
[2020-07-13] MEDS ORDERED: SODIUM CHLORIDE 1,000 ML IV STA ×2 (23:01→23:48)
[2020-07-13 23:27] LABS: MCHC 32.4 g/dl (32.0-35.9)
[2020-07-13 23:31] LABS: HEMATOCRIT 34.5 % (35.4-49); HEMOGLOBIN 11.2 GM/dl (11.7-16.9); MCH 30.1 pg (25.7-33.7); MEAN CELL VOLUME 92.8 fl (80-96); MEAN PLT VOLUME 8.9 fl (7.5-11.1); PLATELET COUNT 110 K/MM3 (134-434); RBC 3.71 M/mm3 (4.00-5.60); RDW 14.6 % (11.9-15.9)
[2020-07-13 23:35] LABS: ALBUMIN 4.3 g/dl (3.4-5.0); BILIRUBIN,TOTAL 4.6 mg/dl (0.2-1); CALCIUM 9.7 mg/dl (8.5-10); CREATININE 1.8 mg/dl (0.55-1.3); POTASSIUM 4.6 mmol/L (3.5-5.1); TOT PROT 7.3 g/dl (6.4-8.2)
[2020-07-13] MEDS ORDERED: INSULIN REGULAR 100 UNITS in SODIUM CHLORIDE 99 ML IVPB SCH (23:45)
[2020-07-13 23:46] LABS: ADD RBC MORPHOLOGY YES
[2020-07-13] MEDS ORDERED: INSULIN REGULAR HUMAN 100 UNITS/ML *VIAL IVPUSH ONE (23:50)
[2020-07-13] MEDS ORDERED: INSULIN REGULAR HUMAN 100 UNITS/ML *VIAL* (FOR IVP) IVPUSH ONE (23:53)
[2020-07-14 00:02] LABS: ANISOCYTOSIS 1+; PLATELET ESTIMATE SLT DECREASE
[2020-07-14] MEDS ORDERED: INSULIN REGULAR HUMAN 100 UNITS/ML *VIAL ONE (00:05)
[2020-07-14 00:57] LABS: VENOUS BASE EXCESS -14.2 mmol/L (-2-2); VENOUS O2 SATURATION 61.3 % (70-80); VENOUS PCO2 31.5 mmHg (38-52); VENOUS PH 7.214 (7.310-7.410)
[2020-07-14] MEDS ORDERED: INSULIN REGULAR 100 UNITS in SODIUM CHLORIDE 99 ML IVPB SCH (01:15)
[2020-07-14] MEDS ORDERED: LACTATED RINGERS SOLUTION 1,000 ML with POTASSIUM CHLORIDE 20 MEQ IV ONE (01:22)
[2020-07-14 03:12] LABS: CALCIUM 8.7 mg/dL (8.5-10.1)
[2020-07-14 03:13] LABS: BLOOD UREA NITROGEN 27.5 mg/dL (7-18)
[2020-07-14 03:16] LABS: CREATININE 1.7 mg/dL (0.55-1.3)
[2020-07-14] MEDS ORDERED: INSULIN (LEVEMIR) 100 UNITS/ML UNITS SQ SCH ×3 (05:00→22:00)
[2020-07-14] MEDS ORDERED: HEPARIN NA (PORCINE) 5,000 UNITS/ML 1ML VIAL SQ SCH (06:00)
[2020-07-14] MEDS ORDERED: INSULIN SLIDING SCALE (NOVOLOG) 1 VIAL SQ SCH (07:00)
[2020-07-14 09:39] LABS: OSMOLALITY,SERUM 390 mosm/kg (278-305)
[2020-07-14 09:41] LABS: POTASSIUM 3.9 mmol/L (3.5-5.1)
[2020-07-14 09:42] LABS: CALCIUM 9.1 mg/dL (8.5-10.1)
[2020-07-14 09:43] LABS: BLOOD UREA NITROGEN 24.6 mg/dL (7-18)
[2020-07-14 09:46] LABS: CREATININE 1.6 mg/dL (0.55-1.3)
[2020-07-14] MEDS ORDERED: MUPIROCIN 2% TOPICAL OINTMENT FOR DECOLONIZATION NS SCH ×2 (10:00→22:00)
[2020-07-14] MEDS: INSULIN (NOVOLOG) ASPART 100 UNITS/ML 10ML VIAL SQ SCH ×2 (11:02→17:25)
[2020-07-14] MEDS: INSULIN SLIDING SCALE (NOVOLOG) 1 VIAL SQ SCH ×2 (11:08→17:25)
[2020-07-14 13:43] LABS: POTASSIUM 3.5 mmol/L (3.5-5.1)
[2020-07-14 13:45] LABS: CALCIUM 9.3 mg/dL (8.5-10.1)
[2020-07-14 13:46] LABS: BLOOD UREA NITROGEN 21.8 mg/dL (7-18)
[2020-07-14 13:49] LABS: CREATININE 1.4 mg/dL (0.55-1.3)
[2020-07-14] MEDS: HEPARIN NA (PORCINE) 5,000 UNITS/ML 1ML VIAL SQ SCH ×2 (17:55→21:04)
[2020-07-14 20:23] LABS: POTASSIUM 3.1 mmol/L (3.5-5.1)
[2020-07-14 20:24] LABS: CALCIUM 8.3 mg/dL (8.5-10.1)
[2020-07-14 20:25] LABS: BLOOD UREA NITROGEN 16.6 mg/dL (7-18)
[2020-07-14 20:28] LABS: CREATININE 1.3 mg/dL (0.55-1.3)
[2020-07-14] MEDS ORDERED: CHLORHEXIDINE GLUCONATE 4% CLEANSER FOR DECOLONIZATION TP SCH ×2 (22:00)
[2020-07-15] MEDS: INSULIN (LEVEMIR) 100 UNITS/ML UNITS SQ SCH (06:28)
[2020-07-15] MEDS: INSULIN (NOVOLOG) ASPART 100 UNITS/ML 10ML VIAL SQ SCH ×3 (06:28→17:31)
[2020-07-15] MEDS: INSULIN SLIDING SCALE (NOVOLOG) 1 VIAL SQ SCH ×3 (06:28→17:31)
[2020-07-15] MEDS: HEPARIN NA (PORCINE) 5,000 UNITS/ML 1ML VIAL SQ SCH ×3 (06:28→21:18)
[2020-07-15] MEDS ORDERED: DEXTROSE 50%-WATER - 25 GM/50 ML VIAL IVPUSH ONE (06:31)
[2020-07-15] MEDS ORDERED: DEXTROSE 50%-WATER 25 GM/50 ML DISP.SYRIN ONE (06:32)
[2020-07-15 09:09] LABS: BASO % 0.1 % (0-2.0); HEMATOCRIT 24.4 % (35.4-49); HEMOGLOBIN 8.3 GM/dL (11.7-16.9); LYMPH % 36.1 % (8-40); MCH 31.1 pg (25.7-33.7); MCHC 34.3 g/dl (32.0-35.9); MEAN CELL VOLUME 90.8 fl (80-96); MEAN PLT VOLUME 8.2 fl (7.5-11.1); MONO % 12.4 % (3.8-10.2); NEUT % 50.4 % (42.8-82.8); PLATELET COUNT 91 K/MM3 (134-434); RBC 2.68 M/mm3 (4.00-5.60); RDW 15.1 % (11.9-15.9); WHITE BLOOD COUNT 2.7 K/mm3 (4.0-10.0)
[2020-07-15 09:35] LABS: ALBUMIN 2.7 g/dl (3.4-5.0); BILIRUBIN,TOTAL 0.9 mg/dL (0.2-1)
[2020-07-15 09:36] LABS: BLOOD UREA NITROGEN 11.8 mg/dL (7-18); CALCIUM 8.5 mg/dL (8.5-10.1); MAGNESIUM 2.3 mg/dL (1.8-2.4); PHOSPHOROUS 3.1 mg/dL (2.5-4.9); TOT PROT 5.2 g/dl (6.4-8.2)
[2020-07-15 09:38] LABS: CREATININE 1.1 mg/dL (0.55-1.3)
[2020-07-15] MEDS ORDERED: POTASSIUM CHLORIDE TABS 20 MEQ TABLET.ER (FP) PO ONE (09:53)
[2020-07-15] MEDS ORDERED: KCL 10 MEQ IVPB 10 MEQ/100 ML INFUS.BAG IVPB SCH (10:00)
[2020-07-15 10:16] LABS: PH,URINE 5.5 (5.0-8.0); URINE APPEARANCE CLEAR; URINE BILIRUBIN NEGATIVE (NEGATIVE); URINE COLOR YELLOW; URINE GLUCOSE (UA) 3+ (NEGATIVE); URINE KETONE 1+ (NEGATIVE); URINE LEUK ESTERASE NEGATIVE (NEGATIVE); URINE NITRITE NEGATIVE (NEGATIVE); URINE PROTEIN NEGATIVE (NEGATIVE); URINE UROBILINOGEN 0.2 mg/dL (0.2-1.0)
[2020-07-15 10:31] LABS: URINE BARBITURATES NEGATIVE ng/ml (CUTOFF=200); URINE BENZODIAZEPINES NEGATIVE ng/ml (CUTOFF=200)
[2020-07-15 10:32] LABS: OPIATES, URI NEGATIVE ng/ml (CUTOFF=300); PHENCYCLIDINE,URINE NEGATIVE ng/ml (CUTOFF=25)
[2020-07-15 10:39] LABS: COCAINE, UR NEGATIVE ng/ml (CUTOFF=300); METHADONE, UR NEGATIVE ng/ml (CUTOFF=300); URINE AMPHETAMINES NEGATIVE ng/ml (CUTOFF=500)
[2020-07-15 11:56] LABS: BASO % 0.1 % (0-2.0); EOS % 0.6 % (0-4.5); HEMATOCRIT 24.9 % (35.4-49); HEMOGLOBIN 8.8 GM/dL (11.7-16.9); LYMPH % 36.1 % (8-40); MCHC 35.3 g/dl (32.0-35.9); MEAN CELL VOLUME 90.6 fl (80-96); MEAN PLT VOLUME 7.8 fl (7.5-11.1); MONO % 11.5 % (3.8-10.2); NEUT % 51.7 % (42.8-82.8); PLATELET COUNT 84 K/MM3 (134-434); RBC 2.75 M/mm3 (4.00-5.60); RDW 15.1 % (11.9-15.9); WHITE BLOOD COUNT 3.7 K/mm3 (4.0-10.0)
[2020-07-15] MEDS ORDERED: SODIUM CHLORIDE 1,000 ML IV STA (15:51)
[2020-07-15] MEDS: POLYETHYLENE GLYCOL 3350 119 GM BTL PO SCH (21:18)
[2020-07-16] MEDS: HEPARIN NA (PORCINE) 5,000 UNITS/ML 1ML VIAL SQ SCH ×3 (06:28→21:30)
[2020-07-16] MEDS: INSULIN (LEVEMIR) 100 UNITS/ML UNITS SQ SCH ×2 (06:30→21:37)
[2020-07-16] MEDS: INSULIN (NOVOLOG) ASPART 100 UNITS/ML 10ML VIAL SQ SCH ×3 (06:32→16:55)
[2020-07-16] MEDS: INSULIN SLIDING SCALE (NOVOLOG) 1 VIAL SQ SCH ×4 (06:32→21:35)
[2020-07-16] MEDS: POLYETHYLENE GLYCOL 3350 119 GM BTL PO SCH ×2 (10:09→21:36)
[2020-07-16 10:41] LABS: BASO % 0.3 % (0-2.0); HEMATOCRIT 25.7 % (35.4-49); HEMOGLOBIN 8.9 GM/dL (11.7-16.9); MCH 31.8 pg (25.7-33.7); MCHC 34.7 g/dl (32.0-35.9); MEAN CELL VOLUME 91.6 fl (80-96); MEAN PLT VOLUME 8.5 fl (7.5-11.1); MONO % 14.3 % (3.8-10.2); NEUT % 51.4 % (42.8-82.8); PLATELET COUNT 84 K/MM3 (134-434); RDW 15.3 % (11.9-15.9)
[2020-07-16] MEDS ORDERED: INSULIN (LEVEMIR) 100 UNITS/ML UNITS SQ SCH (12:44)
[2020-07-16] MEDS ORDERED: INSULIN (LEVEMIR) 100 UNITS/ML UNITS SQ ONE (12:45)
[2020-07-16 13:23] LABS: POTASSIUM 3.5 mmol/L (3.5-5.1)
[2020-07-16 14:08] LABS: ALBUMIN 2.6 g/dl (3.4-5.0); BILIRUBIN,TOTAL 0.8 mg/dL (0.2-1); BLOOD UREA NITROGEN 11.7 mg/dL (7-18); CALCIUM 8.7 mg/dL (8.5-10.1)
[2020-07-16 16:07] VITALS: BMI 16.1
[2020-07-16] MEDS: LACTATED RINGERS SOLUTION 1,000 ML/1,000 ML INFUS.BAG IV SCH (18:30)
[2020-07-17] MEDS: INSULIN (LEVEMIR) 100 UNITS/ML UNITS SQ SCH (06:58)
[2020-07-17] MEDS: INSULIN SLIDING SCALE (NOVOLOG) 1 VIAL SQ SCH ×4 (06:59→21:06)
[2020-07-17] MEDS: INSULIN (NOVOLOG) ASPART 100 UNITS/ML 10ML VIAL SQ SCH ×3 (06:59→17:41)
[2020-07-17] MEDS: HEPARIN NA (PORCINE) 5,000 UNITS/ML 1ML VIAL SQ SCH ×3 (06:59→21:05)
[2020-07-17] MEDS: POLYETHYLENE GLYCOL 3350 119 GM BTL PO SCH ×2 (09:28→21:06)
[2020-07-17 09:46] LABS: BASO % 0.4 % (0-2.0); EOS % 1.8 % (0-4.5); HEMATOCRIT 25.9 % (35.4-49); HEMOGLOBIN 8.9 GM/dL (11.7-16.9); LYMPH % 34.9 % (8-40); MCH 31.8 pg (25.7-33.7); MCHC 34.4 g/dl (32.0-35.9); MEAN CELL VOLUME 92.3 fl (80-96); MEAN PLT VOLUME 9.3 fl (7.5-11.1); MONO % 12.6 % (3.8-10.2); NEUT % 50.3 % (42.8-82.8); PLATELET COUNT 81 K/MM3 (134-434); RBC 2.81 M/mm3 (4.00-5.60); RDW 15.2 % (11.9-15.9)
[2020-07-17 10:08] LABS: POTASSIUM 3.5 mmol/L (3.5-5.1)
[2020-07-17 10:17] LABS: CALCIUM 7.9 mg/dL (8.5-10.1)
[2020-07-17 10:18] LABS: ALBUMIN 2.4 g/dl (3.4-5.0); BLOOD UREA NITROGEN 13.1 mg/dL (7-18); MAGNESIUM 2.1 mg/dL (1.8-2.4)
[2020-07-17 10:20] LABS: CREATININE 0.8 mg/dL (0.55-1.3); PHOSPHOROUS 2.7 mg/dL (2.5-4.9)
[2020-07-17 10:21] LABS: BILIRUBIN,TOTAL 0.7 mg/dL (0.2-1); TOT PROT 4.9 g/dl (6.4-8.2)
[2020-07-17 11:03] LABS: HIV INTERPRETATION NEGATIVE (NEGATIVE)
[2020-07-17] MEDS ORDERED: POTASSIUM CHLORIDE TABS 20 MEQ TABLET.ER (FP) PO ONE (18:25)
[2020-07-17] MEDS ORDERED: INSULIN (LEVEMIR) 100 UNITS/ML UNITS SQ SCH ×2 (22:00→23:22)
[2020-07-18] MEDS: LACTATED RINGERS SOLUTION 1,000 ML/1,000 ML INFUS.BAG IV SCH (05:31)
[2020-07-18] MEDS: HEPARIN NA (PORCINE) 5,000 UNITS/ML 1ML VIAL SQ SCH ×2 (05:32→15:00)
[2020-07-18] MEDS: INSULIN (NOVOLOG) ASPART 100 UNITS/ML 10ML VIAL SQ SCH ×3 (06:50→17:19)
[2020-07-18] MEDS: INSULIN SLIDING SCALE (NOVOLOG) 1 VIAL SQ SCH ×3 (06:52→17:20)
[2020-07-18 10:05] LABS: BASO % 0.5 % (0-2.0); EOS % 5.1 % (0-4.5); HEMOGLOBIN 9.1 GM/dL (11.7-16.9); MCH 31.6 pg (25.7-33.7); MCHC 33.6 g/dl (32.0-35.9); MEAN CELL VOLUME 94.2 fl (80-96); MEAN PLT VOLUME 9.7 fl (7.5-11.1); MONO % 13.4 % (3.8-10.2); PLATELET COUNT 80 K/MM3 (134-434); RBC 2.87 M/mm3 (4.00-5.60); RDW 15.9 % (11.9-15.9); WHITE BLOOD COUNT 3.4 K/mm3 (4.0-10.0)
[2020-07-18 10:26] LABS: BLOOD UREA NITROGEN 14.2 mg/dL (7-18); CALCIUM 8.4 mg/dL (8.5-10.1); MAGNESIUM 2.1 mg/dL (1.8-2.4)
[2020-07-18 10:30] LABS: CREATININE 0.8 mg/dL (0.55-1.3); PHOSPHOROUS 2.9 mg/dL (2.5-4.9)
[2020-07-18] MEDS: POLYETHYLENE GLYCOL 3350 119 GM BTL PO SCH (11:05)
[2020-07-18 14:44] VITALS: TEMP 97.9
[2020-07-18 16:02] VITALS: BP 120/86; PULSE 93
== END 2020-07-18 21:34 | disposition home or self-care (01) | DRG 637 ==
LOC: FER 22:49 → JICU 07-14 02:43 → J6S 07-14 11:46
PROVIDERS: ADMIT Internal Medicine; ATTEND Internal Medicine
DX: E11.10 Type 2 diabetes mellitus with ketoacidosis without coma (principal); E43 Unspecified severe protein-calorie malnutrition; N17.9 Acute kidney failure, unspecified; E87.0 Hyperosmolality and hypernatremia; Z68.1 Body mass index [BMI] 19.9 or less, adult; N13.30 Unspecified hydronephrosis; E86.0 Dehydration; D64.9 Anemia, unspecified; E87.5 Hyperkalemia; E11.65 Type 2 diabetes mellitus with hyperglycemia; E11.22 Type 2 diabetes mellitus with diabetic chronic kidney disease; N18.9 Chronic kidney disease, unspecified; Z91.14 Patient's other noncompliance with medication regimen; I95.9 Hypotension, unspecified
CPT/HCPCS: 36415; 71045-TC-FY; 76775-TC; 76856-TC; 80048; 80053; 80307; 81003; 82010; 82436; 82570; 82803; 82962; 83036; 83605; 83735; 83930; 84100; 84133; 84300; 85025; 87040; 87389; 93005; 99285-25; C9803; J1644; U0003; U0005

== ENCOUNTER 2022-03-18 14:27 | Emergency (ER) | payer BC ==
[2022-03-18 14:43] VITALS: BP 130/82; PULSE 80; RESP 16; TEMP 98.7; BMI 21.1
== END 2022-03-18 15:09 | disposition home or self-care (01) ==
LOC: FER 14:27
DX: Z48.01 Encounter for change or removal of surgical wound dressing (principal)
CPT/HCPCS: 99282-25

== ENCOUNTER 2022-05-21 01:15 | Emergency (ER) | payer BC ==
[2022-05-21 01:34] VITALS: BP 118/87; PULSE 116; RESP 17; TEMP 98.3; BMI 22.7
[2022-05-21] MEDS ORDERED: SODIUM CHLORIDE 1,000 ML IV ONE (01:35)
[2022-05-21] MEDS ORDERED: INSULIN REGULAR HUMAN 100 UNITS/ML *VIAL IVPUSH ONE (01:36)
[2022-05-21] MEDS ORDERED: INSULIN REGULAR HUMAN 100 UNITS/ML *VIAL ONE (01:44)
[2022-05-21 02:27] LABS: HEMATOCRIT 43.1 % (35.4-49); HEMOGLOBIN 14.4 GM/dL (11.7-16.9); MCH 27.8 pg (25.7-33.7); MCHC 33.4 g/dl (32.0-35.9); MEAN CELL VOLUME 83.2 fl (80-96); MEAN PLT VOLUME 8.8 fl (7.5-11.1); PLATELET COUNT 189 10^3/uL (134-434); RBC 5.17 M/mm3 (4.00-5.60); RDW 13.7 % (11.9-15.9); WHITE BLOOD COUNT 5.6 K/mm3 (4.0-10.0)
[2022-05-21 03:38] LABS: CALCIUM 9.7 mg/dL (8.5-10.1)
[2022-05-21 03:39] LABS: ALBUMIN 3.8 g/dl (3.4-5.0); BLOOD UREA NITROGEN 18.1 mg/dL (7-18)
[2022-05-21 03:43] LABS: TOT PROT 7.3 g/dl (6.4-8.2)
[2022-05-21 03:44] LABS: BILIRUBIN,TOTAL 1.6 mg/dL (0.2-1)
== END 2022-05-21 04:24 | disposition home or self-care (01) ==
LOC: FER 01:15
PROC: 3E033GC Introduction of Other Therapeutic Substance into Peripheral Vein, Percutaneous Approach (ICD-10-PCS; principal; 2022-05-21)
DX: E11.65 Type 2 diabetes mellitus with hyperglycemia (principal)
CPT/HCPCS: 36415; 80053; 82962; 85027; 99284-25

== ENCOUNTER 2022-08-29 22:58 | Emergency (ER) | payer BC ==
[2022-08-29] MEDS ORDERED: SODIUM CHLORIDE 1,000 ML IV ONE (23:22)
[2022-08-29] MEDS ORDERED: SODIUM CHLORIDE 1,000 ML IV SCH (23:30)
[2022-08-30] MEDS ORDERED: INSULIN REGULAR HUMAN 100 UNITS/ML *VIAL ONE (00:04)
[2022-08-30] MEDS ORDERED: INSULIN REGULAR HUMAN 100 UNITS/ML *VIAL IVPUSH ONE (00:11)
[2022-08-30 00:25] VITALS: BP 112/86; PULSE 105; RESP 18; TEMP 98.6; BMI 20.3
[2022-08-30 00:56] LABS: HEMATOCRIT 41.5 % (35.4-49); HEMOGLOBIN 14.3 GM/dL (11.7-16.9); MCH 28.9 pg (25.7-33.7); MCHC 34.4 g/dl (32.0-35.9); MEAN CELL VOLUME 84.1 fl (80-96); MEAN PLT VOLUME 8.6 fl (7.5-11.1); PLATELET COUNT 207 10^3/uL (134-434); RBC 4.94 M/mm3 (4.00-5.60); RDW 13.1 % (11.9-15.9); WHITE BLOOD COUNT 4.8 K/mm3 (4.0-10.0)
[2022-08-30 01:33] LABS: POTASSIUM 4.6 mmol/L (3.5-5.1)
[2022-08-30 01:35] LABS: ALBUMIN 3.6 g/dl (3.4-5.0); CALCIUM 9.5 mg/dL (8.5-10.1)
[2022-08-30 01:38] LABS: CREATININE 1.2 mg/dL (0.55-1.3)
[2022-08-30 01:40] LABS: BILIRUBIN,TOTAL 1.2 mg/dL (0.2-1); TOT PROT 7.2 g/dl (6.4-8.2)
[2022-08-30 01:51] LABS: BLOOD UREA NITROGEN 17.1 mg/dL (7-18)
== END 2022-08-30 02:02 | disposition home or self-care (01) ==
LOC: FER 22:58
PROC: 3E013VG Introduction of Insulin into Subcutaneous Tissue, Percutaneous Approach (ICD-10-PCS; principal; 2022-08-30)
PROC: 3E0337Z Introduction of Electrolytic and Water Balance Substance into Peripheral Vein, Percutaneous Approach (ICD-10-PCS; 2022-08-30)
DX: E11.65 Type 2 diabetes mellitus with hyperglycemia (principal)
CPT/HCPCS: 36415; 80053; 82962; 83605; 85027; 99284-25